=== PATIENT | male | born 1935 | race Caucasian/White ===

== ENCOUNTER 2018-11-21 04:52 | Inpatient (IN) ==
--- NOTE | 2018-11-21 06:02 | PROVIDER DOCUMENTATION ---
HPI-Respiratory General - General Chief Complaint: Shortness of Breath Stated Complaint: sob Time Seen by Provider: 11/21/18 05:52 Source: patient, family Allergies/Adverse Reactions: Patient Allergies Allergy/AdvReac Type Severity Reaction Status Date / Time clopidogrel [From Plavix] AdvReac Unknown Verified 11/21/18 05:22 Home Medications: Home Medication List Medication Instructions Recorded Confirmed Last Taken Type Metformin E.r. [Glucophage Xr] 500 mg PO BID CC 11/21/18 11/21/18 Unknown History Metoprolol Succinate E.r. [Toprol 50 mg PO DAILY 11/21/18 11/21/18 Unknown History Xl] Pravastatin Sodium 80 mg PO DAILY 11/21/18 11/21/18 Unknown History - History of Present Illness-Resp Nature of Presenting Problem: Pt states shortness of breath for 3 weeks that has been worsening. He has been battling pancreatic cancer. patient quit smoking 20 years ago, never diagnosed of COPD, or CHF. EMS reported oxygen saturation was 70 percent on room air. patient was supposed to start chemotherapy on Wednesday, supposed to have Port in place with Dr Lundberg, Quality of Pain: reports: none Severity in ED: reports: moderate Onset/Duration: reports: other (3 weeks) Timing: reports: still present Context: denies: aspiration/choking Exposure: reports: unknown cause Cough Quality/Degree: reports: dry cough Episode Frequency: no prior episodes Current Respiratory Medication Therapy: Initiated see nurses note Modifying Factors: improves with: exertion Associated Symptoms: reports: shortness of breath, wheezing Similar Symptoms Previously?: No Recently seen or treated by another doctor?: No Review of Systems - Adult - REVIEW OF SYSTEMS - ADULT Constitutional: reports: fatique, other (decreased appetite). denies: fever Ears, Nose, Mouth & Throat: reports: no symptoms reported Cardiovascular: denies: chest pain Respiratory: reports: cough, shortness of breath Gastrointestinal: denies: abdominal pain, diarrhea, nausea Genitourinary: reports: no symptoms reported. denies: dysuria Integumentary: reports: no symptoms reported Neurological: reports: no symptoms reported Psychiatric: reports: no symptoms reported Endocrine: reports: no symptoms reported Hematologic/Lymphatic: reports: no symptoms reported Allergic/Immunologic: reports: no symptoms reported Past History - Adult - PAST MEDICAL HISTORY-ADULT Review of Records: reports: Nursing Assessment Review Physical Exam-General - PHYSICAL EXAM-ADULT Initial Vital Signs Reviewed: Yes - CONSTITUTIONAL General Appearance: alert - EYES Eyes: PERRL/EOMI - HEAD, EARS, NOSE, MOUTH & THROAT HENMT: normocephalic/atraumatic - NECK Neck: non-tender, supple - RESPIRATORY Respiratory: crackles, rales, wheezing - CARDIOVASCULAR Cardiovascular: normal peripheral pulses - GASTROINTESTINAL (ABDOMEN) Abdominal Exam: non tender, soft - LYMPHATIC Lymphatic: no adenopathy - MUSCULOSKELETAL Back Exam: no CVA tenderness, no vertebral tenderness Extremity: normal range of motion, non-tender, normal gait - SKIN Integumentary: normal color, warm/dry - NEUROLOGIC Neurologic: director of gift planning II-XII nml as tested - PSYCHIATRIC Psych/Mental Status: normal mood/affect Progress - PLAN OF CARE/RESULTS Progress/Plan/Lab Results: Vital Signs - 8 hr 11/21/18 05:00 11/21/18 05:01 11/21/18 05:04 Temperature Pulse Rate Respiratory Rate Blood Pressure 141/82 127/88 O2 Sat by Pulse Oximetry 97 97 97 11/21/18 05:10 11/21/18 05:20 11/21/18 05:30 Temperature Pulse Rate Respiratory Rate Blood Pressure O2 Sat by Pulse Oximetry 97 96 96 11/21/18 05:33 11/21/18 05:40 11/21/18 05:50 Temperature Pulse Rate Respiratory Rate Blood Pressure 112/71 O2 Sat by Pulse Oximetry 95 95 96 11/21/18 06:00 11/21/18 06:04 11/21/18 06:10 Temperature Pulse Rate Respiratory Rate Blood Pressure 111/96 O2 Sat by Pulse Oximetry 93 L 92 L 98 11/21/18 06:20 11/21/18 06:30 11/21/18 06:33 Temperature Pulse Rate Respiratory Rate Blood Pressure 111/77 O2 Sat by Pulse Oximetry 95 92 L 89 L 11/21/18 06:40 11/21/18 06:50 11/21/18 07:00 Temperature Pulse Rate Respiratory Rate Blood Pressure O2 Sat by Pulse Oximetry 92 L 92 L 90 L 11/21/18 07:03 11/21/18 07:10 11/21/18 07:20 Temperature Pulse Rate Respiratory Rate Blood Pressure 110/67 O2 Sat by Pulse Oximetry 90 L 92 L 92 L 11/21/18 07:30 11/21/18 07:40 11/21/18 07:43 Temperature 97.3 F L Pulse Rate 92 H Respiratory Rate 17 Blood Pressure 115/72 O2 Sat by Pulse Oximetry 94 L 91 L 93 L 11/21/18 07:44 11/21/18 07:50 11/21/18 08:00 Temperature Pulse Rate 95 H 97 H Respiratory Rate 17 22 Blood Pressure 115/72 O2 Sat by Pulse Oximetry 90 L 91 L 91 L 11/21/18 08:03 11/21/18 08:10 11/21/18 08:20 Temperature Pulse Rate 95 H 92 H 96 H Respiratory Rate 20 15 16 Blood Pressure 93/73 O2 Sat by Pulse Oximetry 90 L 91 L 92 L 11/21/18 08:30 11/21/18 08:33 11/21/18 08:59 Temperature Pulse Rate 90 89 89 Respiratory Rate 15 15 19 Blood Pressure 108/65 O2 Sat by Pulse Oximetry 91 L 90 L 93 L 11/21/18 09:00 11/21/18 09:03 Temperature Pulse Rate 92 H 91 H Respiratory Rate 23 17 Blood Pressure 117/73 O2 Sat by Pulse Oximetry 91 L 93 L Laboratory Results - last 24 hr 11/21/18 11/21/18 11/21/18 06:37 07:02 07:02 WBC 7.12 RBC 4.74 Hgb 15.1 Hct 45.3 MCV 95.6 MCH 31.9 H MCHC 33.3 RDW Std Deviation 14.4 Plt Count 261 MPV 10.0 Immature Gran % (Auto) 0.0 Neut % (Auto) 74.1 Lymph % (Auto) 15.9 L [place] % (Auto) 9.6 H Eos % (Auto) 0.1 Baso % (Auto) 0.3 Immature Gran # (Auto) 0.00 Neut # (Auto) 5.28 Lymph # (Auto) 1.13 L [place] # (Auto) 0.68 H Eos # (Auto) 0.01 Baso # (Auto) 0.02 Specimen Type ARTERIAL Sample Site R RADIAL pH 7.43 pCO2 39 pO2 63 HCO3 26.0 Base Excess 1.6 Oxyhemoglobin 90.8 L ABG O2 Sat (Calculated) 18.4 ABG O2 Saturation 94.4 L ABG Carboxyhemoglobin 2.30 ABG Methemoglobin 1.5 Marcelino Test YES A-a O2 Difference 145.0 Total Hemoglobin 14.4 Lactate 1.70 Liter Flow 4.0 Blood Gas Modality CANNULA FiO2 % 36.0 Sodium 139 Potassium 3.5 Chloride 95 L Carbon Dioxide 29 Anion Gap 15 BUN 20 Creatinine 0.7 Estimated GFR/1.73 m2 > 60 BUN/Creatinine Ratio 29 Glucose 148 H Calculated Osmolality 283 Calcium 9.3 Total Bilirubin 0.48 AST 19 ALT 13 Alkaline Phosphatase 96 Yvj-H-Vaxznfpspmg Pept Total Protein 7.8 Albumin 3.9 Globulin 3.9 Albumin/Globulin Ratio 1.0 Plasma Lactate 11/21/18 11/21/18 07:02 07:02 WBC RBC Hgb Hct MCV MCH MCHC RDW Std Deviation Plt Count MPV Immature Gran % (Auto) Neut % (Auto) Lymph % (Auto) [place] % (Auto) Eos % (Auto) Baso % (Auto) Immature Gran # (Auto) Neut # (Auto) Lymph # (Auto) [place] # (Auto) Eos # (Auto) Baso # (Auto) Specimen Type Sample Site pH pCO2 pO2 HCO3 Base Excess Oxyhemoglobin ABG O2 Sat (Calculated) ABG O2 Saturation ABG Carboxyhemoglobin ABG Methemoglobin Marcelino Test A-a O2 Difference Total Hemoglobin Lactate Liter Flow Blood Gas Modality FiO2 % Sodium Potassium Chloride Carbon Dioxide Anion Gap BUN Creatinine Estimated GFR/1.73 m2 BUN/Creatinine Ratio Glucose Calculated Osmolality Calcium Total Bilirubin AST ALT Alkaline Phosphatase Xho-S-Pjycpjowfjp Pept 562 H Total Protein Albumin Globulin Albumin/Globulin Ratio Plasma Lactate 2.5 H Orders Category Date Time Status Saline Loc NOW Care 11/21/18 06:12 Active CHEST-PORTABLE [RAD] Stat Exams 11/21/18 06:12 Completed CTA [CT ANGIOGRM PULMONARY ARTERIES] [CT] Stat Exams 11/21/18 07:52 Completed ABG [RESP] Routine Lab 11/21/18 06:37 Completed BLOOD CULTURE [BLDCUL] Stat Lab 11/21/18 07:39 Received BNP [PRO B-NATRIURETIC PEPTIDE] Stat Lab 11/21/18 07:02 Completed CBC WITH DIFF [HEME] Stat Lab 11/21/18 07:02 Completed COMPREHENSIVE METABOLIC PANEL [CHEM] Stat Lab 11/21/18 07:02 Completed LACTATE, PLASMA [CHEM] Stat Lab 11/21/18 07:02 Completed CefTRIAXONE [Rocephin] 1 gm Med 11/21/18 06:12 Discontinued 0.9% Sodium Chloride Inj [Ns] 50 ml IV NOW Methylprednisolone Sod Succ [Solu-Medrol] Med 11/21/18 06:12 Discontinued 125 mg IV NOW ONE Pulse Oximetry Stat Oth 11/21/18 06:12 Active Result Diagrams: 11/21/18 07:02 11/21/18 07:02 - XRAY 1 XRAY Study: Chest Impression: Abnormal (FINDINGS: There are bilateral infiltrates with a basilar predominance that are predominantly interstitial most compatible with pulmonary edema. There is suggestion of pulmonary venous congestion. There is trace fissural fluid on the right. The cardiac silhouette is borderline prominent. There are CABG changes. IMPRESSION: Bilateral predominantly interstitial infiltrates suggesting pulmonary edema. Superimposed pneumonia cannot be excluded in the right clinical scenario. Electronically signed by Jesus Julien 11/21/2018 7:11 AM) - CT/MRI 1 CT Study: other (cta) Impression: Abnormal (FINDINGS: There is a moderate-sized right-sided pleural effusion measuring 3.8 cm posteriorly and inferiorly in the midline with a smaller left pleural effusion measuring 2.7 cm. No cardiomegaly. No thoracic aortic aneurysm or dissection. Prominent atherosclerosis. Normal opacification of the pulmonary arteries and their major branches. There is pulmonary edema. Atelectasis is found in both lung bases. Severe emphysema. Mild increased interstitial markings bilaterally. Mildly prominent mediastinal and hilar lymph nodes. There is bronchial wall thickening. IMPRESSION: 1.No pulmonary emboli 2.Pulmonary edema with pleural effusions 3.Severe emphysema 4.Multifocal bilateral infiltrates and atelectasis and bronchitis This exam was performed using automated exposure control, adjustment of mA or kV according to patient size, and/or use of iterative reconstruction technique. Electronically signed by Jericho Chapman 11/21/2018 9:20 AM) - CONSULTS/PCP/HOSPITALIST Notification #1 *Consult/PCP/Hospitalist*: MALORIE Sanchez for Dr. Puente Time Discussed: 09:40 Consult Disposition: Admit - CHANGE OF SHIFT REPORT (ED Provider) 1 Report Given and Care Transferred to:: Dr Byrd Time of Transfer: 08:00 Items Pending: Labs, XRAY Results Departure - Departure Date of Disposition Decision: 11/21/18 Time of Disposition Decision: 09:40 DIAGNOSIS: Pneumonia, Cancer of pancreas Disposition: ADMITTED INPATIENT 09 Certified Medical Emergency: Emergent Condition: Stable Referrals and Follow-Ups: Terry Blair MD [Primary Care Provider] - - Critical Care Note This patient required my direct & personal management of CC.: No Attestation - Physician/ ROLANDO Attestation The physician spent face to face time with patient:: Yes Advanced Practice Provider documentation review:: Supervising physician onsite and consulted in the evaluation and care of this patient. The physician did have a face to face encounter with the patient.
[2018-11-21] MEDS ORDERED: SOLU-MEDROL IV ONE (06:12)
[2018-11-21] MEDS ORDERED: ROCEPHIN 1 GM in NS 50 ML IV ONE (06:12)
[2018-11-21 06:46] LABS: ALLEN TEST YES; BE 1.6 mmoll (-3.0-3.0); BLOOD TYPE ARTERIAL; METHB 1.5 % (0.0-1.5); O2(CT) 18.4 mL/dL (15.0-23.0); O2HB 90.8 % (95.0-99.0); PCO2(98.6) 39 mmHg (35-45); PO2(98.6) 63 mmHg (60-100); SAMPLE BLOOD; SAO2 94.4 % (95.0-100.0); THB 14.4 g/dL (11.5-17.4); pH(98.6) 7.43 (7.35-7.45)
[2018-11-21 06:47] LABS: MODALITY CANNULA
[2018-11-21 07:13] LABS: BASO# 0.02 X1000 (0.0-0.2); BASO% 0.3 % (0.0-0.8); EOS# 0.01 X1000 (0.0-0.7); EOS% 0.1 % (0.0-10.0); HEMATOCRIT 45.3 % (42.0-52.0); HEMOGLOBIN 15.1 g/dL (14.0-18.0); LYMPH# 1.13 X1000 (1.2-3.4); LYMPH% 15.9 % (20.5-51.1); MCH 31.9 PG (27-31); MCHC 33.3 g/dL (33-37); MCV 95.6 FL (81-99); MONO# 0.68 X1000 (0.11-0.59); MONO% 9.6 % (1.7-9.3); NEUT# 5.28 X1000 (1.4-6.5); NEUT% 74.1 % (42.2-75.2); PLT 261 X1000 (130-400); RBC 4.74 XMIL (4.7-6.1); RDW 14.4 % (11.5-14.5); WBC 7.12 X1000 (4.8-10.8)
--- NOTE | 2018-11-21 07:13 | Diag Imaging Result Doc PS360 ---
EXAM: CHEST-PORTABLE INDICATION: cough TECHNIQUE: One view COMPARISON: None. FINDINGS: There are bilateral infiltrates with a basilar predominance that are predominantly interstitial most compatible with pulmonary edema. There is suggestion of pulmonary venous congestion. There is trace fissural fluid on the right. The cardiac silhouette is borderline prominent. There are CABG changes. IMPRESSION: Bilateral predominantly interstitial infiltrates suggesting pulmonary edema. Superimposed pneumonia cannot be excluded in the right clinical scenario. Electronically signed by Jesus Julien 11/21/2018 7:11 AM
[2018-11-21 07:42] LABS: AGAP 15; ALBUMIN 3.9 g/dL (3.5-5.0); ALKALINE PHOSPHATASE 96 U/L (32-122); BUN 20 mg/dL (8-22); CALCIUM 9.3 mg/dL (8.8-10.2); CHLORIDE 95 mmol/L (98-107); COSMO 283; CREATININE 0.7 mg/dL (0.7-1.2); ESTIMATED GFR > 60; GLUCOSE 148 mg/dL (70-104); GOT 19 U/L (10-34); GPT 13 U/L (10-44); POTASSIUM 3.5 mmol/L (3.5-5.1); SODIUM 139 mmol/L (136-145); TCO2 29 mmol/L (25-35); TOTAL BILIRUBIN 0.48 mg/dL (0.20-1.00); TOTAL PROTEIN 7.8 g/dL (6.3-8.3)
--- NOTE | 2018-11-21 08:26 | ED EKG INTERP ---
This chart was entered by Joe Goldstein Scribe, acting as scribe for Martha Byrd MD. EKG Interpretation - EKG Time of EKG reading by physician:: 08:06 EKG Read and Signed by:: Martha Byrd EKG Interpretation (*Must complete 3 of following elements*): Abnormal (inferior infarct age undetermined) Rate: 92 Rhythm: sinus [place]: normal QRS: PVC's (occasional) Attestation - Physician/ ROLANDO Attestation The physician spent face to face time with patient:: Yes Advanced Practice Provider documentation review:: Supervising physician onsite and consulted in the evaluation and care of this patient. The physician did have a face to face encounter with the patient. This chart was documented by the indicated scribe, (Joe Goldstein Scribe) and accurately reflects the services I performed and decisions made by me, Martha Byrd MD, as attested by the provider's signature.
--- NOTE | 2018-11-21 09:22 | Diag Imaging Result Doc PS360 ---
EXAM: CT ANGIOGRM PULMONARY ARTERIES HISTORY: rule out PE TECHNIQUE: CT chest with intravenous contrast. Pulmonary arterial protocol with MIP images. COMPARISON: None. FINDINGS: There is a moderate-sized right-sided pleural effusion measuring 3.8 cm posteriorly and inferiorly in the midline with a smaller left pleural effusion measuring 2.7 cm. No cardiomegaly. No thoracic aortic aneurysm or dissection. Prominent atherosclerosis. Normal opacification of the pulmonary arteries and their major branches. There is pulmonary edema. Atelectasis is found in both lung bases. Severe emphysema. Mild increased interstitial markings bilaterally. Mildly prominent mediastinal and hilar lymph nodes. There is bronchial wall thickening. IMPRESSION: 1.No pulmonary emboli 2.Pulmonary edema with pleural effusions 3.Severe emphysema 4.Multifocal bilateral infiltrates and atelectasis and bronchitis This exam was performed using automated exposure control, adjustment of mA or kV according to patient size, and/or use of iterative reconstruction technique. Electronically signed by Jericho Chapman 11/21/2018 9:20 AM
[2018-11-21] MEDS ORDERED: ZOFRAN IV PRN (10:17)
[2018-11-21] MEDS ORDERED: TYLENOL PO PRN (10:20)
[2018-11-21] MEDS ORDERED: DUONEB (A & A) INH PRN (10:21)
[2018-11-21] MEDS ORDERED: VANCOMYCIN IV PER PHARMACY MISC SCH (10:30)
--- NOTE | 2018-11-21 10:49 | HISTORY AND PHYSICAL ---
HISTORY OF PRESENT ILLNESS: This is an 83-year-old followed by Dr. Bah. He a month ago started feeling like he had poor energy, weak, and they diagnosed pancreatic cancer, looks like it is metastatic. He did go down. He has taken, I think, 4 separate trips to [place] and they have told him that he was inoperable, and so he is seeing Dr. Blair. They want to put a port in and start chemotherapy, but he has started having more trouble with breathing and feeling worse and he came in to the emergency room. It is questionable whether he has postobstructive pneumonia, multilobar versus this is metastatic cancer. We will treat him empirically with some antibiotic and get him ready for his port placement. PAST MEDICAL HISTORY: 1. Coronary artery disease status post CABG. 2. Hypercholesterolemia. 3. Hypertension. 4. He has diabetes mellitus type 2. ALLERGIES: He no known drug allergies other than Plavix which he said he had diminished his appetite. FAMILY HISTORY: He does not report any significant history other than hypertension. SOCIAL HISTORY: Negative for alcohol or tobacco. No illicit drugs. Very attentive family. 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 REVIEW OF SYSTEMS: General: No weight gain or loss that he is aware of. HEENT: No change in hearing or visual acuity. Respiratory: No increased work of breathing or dyspnea. Cardiovascular: No chest pain or tachy palpitation. Gastrointestinal and Genitourinary: No gross hematuria or dysuria. Musculoskeletal/Neurologic: No significant complaints. Endocrinologic/Hemologic: No significant history. PHYSICAL EXAMINATION: GENERAL: Well developed, well nourished white male, awake and alert, oriented x3, pleasant. VITAL SIGNS: Temperature 97.3 degrees, pulse 95, respirations 17, blood pressure 115/72. HEENT: Pupils are equal and round. LUNGS: Clear in all lung freeman. CARDIOVASCULAR: Regular rhythm and rate without murmur or S3. ABDOMEN: Soft. SKIN: Warm and dry. LABORATORY DATA: White count 7120, hematocrit 45, platelet count 261,000. Sodium 139, potassium 3.5, chloride 95, BUN 20, creatinine 0.7, alkaline phosphatase 96. ProBNP was 562. Blood gases: pH is 7.43, pCO2 39, PO2 was 63, O2 saturation was 94%. He is on 36% FiO2. Chest x-ray: Bilateral predominantly interstitial infiltrates suggesting pulmonary edema, superimposed pneumonia could not be excluded. CT pulmonary angiogram showed no pulmonary emboli, pulmonary edema with pleural effusion, severe emphysema, multifactorial bilateral infiltrates, atelectasis, and bronchitis. ASSESSMENT AND PLAN: 1. Pancreatic cancer metastatic stage IV. Could not rule out postobstructive pneumonia. We are going to treat him. I think we will treat with Zosyn and vancomycin combination. Give him supplementary O2 and ask Dr. Blair to help follow along. Also get Pulmonary involved. 2. Pancreatic cancer, metastatic. He needs a port placement. They are contemplating systemic therapy with Dr. Blair. We will consult Dr. Blair, and we will give him a little bit of fluids. 3. Nutrition looks okay. Encourage p.o. intake. We will put him on DuoNeb q.4 hours while awake. We will put him on Advair 250/50 one puff twice a day. Will put him on normal saline run at 85 mL an hour. We will check his thyroid, T4, TSH, B12 and folate. I guess we ought to check cardiac enzymes as well in the morning, troponin, CK. We will put him on guaifenesin ER 1200 mg twice a day, and we will consult Dr. Chase Lundberg about port placement, when it would be optimal. cc: Marcelino Hoyos MD
[2018-11-21 11:25] LABS: FREE T4 1.29 ng/dL (0.93-1.70)
[2018-11-21] MEDS: ZOSYN 3.375 GM in NS 50 ML IV SCH ×3 (11:30→21:35)
[2018-11-21] MEDS: NS 1,000 ML IV SCH (11:30)
[2018-11-21] MEDS: HUMALOG SUBQ SCH ×3 (11:40→23:45)
--- NOTE | 2018-11-21 12:21 | EKG Report ---
Test Performed on : 11/21/2018 08:06:54 AM Test Reason : SOB Blood Pressure : / mmHG Vent. Rate : 092 BPM Atrial Rate : 092 BPM P-R Int : 196 ms QRS Dur : 112 ms QT Int : 324 ms P-R-T Axes : 024 016 -40 degrees QTc Int : 400 ms Sinus rhythm. with occasional premature ventricular complexes. Inferior infarct , age undetermined Abnormal ECG No previous ECGs available Unconfirmed Result
[2018-11-21] MEDS ORDERED: VANCOMYCIN 2,300 MG in NS 500 ML IV ONE (13:00)
[2018-11-21] MEDS: DUONEB (A & A) INH SCH ×4 (14:14→23:52)
[2018-11-21] MEDS: SOLU-MEDROL IV SCH ×2 (16:09→21:25)
[2018-11-21] MEDS: NORCO-10 PO PRN ×2 (17:21→21:34)
[2018-11-21] MEDS: ADVAIR 250/50 DISKUS INH SCH (20:05)
[2018-11-22] MEDS: DUONEB (A & A) INH SCH ×6 (03:52→23:22)
[2018-11-22] MEDS: NS 1,000 ML IV SCH (06:08)
[2018-11-22] MEDS: PRILOSEC PO SCH (06:09)
[2018-11-22] MEDS: SOLU-MEDROL IV SCH ×2 (06:09→12:22)
[2018-11-22] MEDS: ZOSYN 3.375 GM in NS 50 ML IV SCH ×3 (06:09→18:35)
[2018-11-22 06:54] LABS: HEMATOCRIT 38.8 % (42.0-52.0); HEMOGLOBIN 12.8 g/dL (14.0-18.0); MCH 32.1 PG (27-31); MCV 97.2 FL (81-99); MPV 10.1 FL (7.4-10.4); RBC 3.99 XMIL (4.7-6.1); RDW 14.5 % (11.5-14.5); WBC 7.07 X1000 (4.8-10.8)
[2018-11-22] MEDS: HUMALOG SUBQ SCH ×4 (06:55→20:50)
[2018-11-22 07:25] LABS: AGAP 10; ALB/GLOB RATIO 1.1; ALBUMIN 3.2 g/dL (3.5-5.0); ALKALINE PHOSPHATASE 84 U/L (32-122); BUN 16 mg/dL (8-22); CALCIUM 8.7 mg/dL (8.8-10.2); CHLORIDE 96 mmol/L (98-107); COSMO 272; CREATININE 0.5 mg/dL (0.7-1.2); ESTIMATED GFR > 60; GLUCOSE 173 mg/dL (70-104); GOT 28 U/L (10-34); GPT 22 U/L (10-44); POTASSIUM 4.1 mmol/L (3.5-5.1); SODIUM 133 mmol/L (136-145); TCO2 27 mmol/L (25-35); TOTAL PROTEIN 6.1 g/dL (6.3-8.3)
[2018-11-22] MEDS: ADVAIR 250/50 DISKUS INH SCH ×2 (07:32→20:20)
--- NOTE | 2018-11-22 07:37 | HEMO/ONC CONSULTATION ---
DATE: 11/21/2018 CHIEF COMPLAINT: We were consulted for further management of patient's metastatic pancreatic cancer. HISTORY OF PRESENT ILLNESS: Mr. Lares presented to the emergency department today complaining of 3 weeks of shortness of breath has been getting worse. Patient quit smoking approximately 20 years ago. Patient brought to ER by EMS oxygen saturation reported at 70% on room air. X-ray the chest while in emergency room showed bilateral interstitial infiltrates suggesting pulmonary edema superimposed pneumonia cannot be excluded, and the patient at that time was admitted for further evaluation and management, to be placed on antibiotics. Mr. Lares is a know to our clinic where he has been following up for his pancreatic body adenocarcinoma. Patient had a CT scan showed multiloculated cystic lesion head and neck, 2nd mass in the distal body the pancreas. Endoscopic ultrasound with biopsy showed pancreatic body mass and pancreatic head was done on 11/04/2018. PET CT revealed hypermetabolic pancreatic mass in the distal body. CT of the chest showed lung nodule that was thought to be benign or granulomatous. Patient was not considered a candidate for surgery due to high risk by [facility]. The plan was to get patient a Port-A-Cath placed this week and start him on Gemzar and Abraxane with 3 to 4 cycles of chemotherapy then followed by concurrent chemoradiation. PAST MEDICAL HISTORY: Coronary artery disease status post CABG, hypercholesterolemia, hypertension, diabetes mellitus type 2. PAST SURGICAL HISTORY: CABG. ALLERGIES: No known drug allergies. HOME MEDICATIONS: Aspirin, metoprolol, irbesartan, pravastatin, metformin. FAMILY HISTORY: Hypertension. SOCIAL HISTORY: Denies any tobacco or alcohol or illicit drug use. REVIEW OF SYSTEMS: Negative as mentioned HPI. PHYSICAL EXAM: Vital Signs: Temperature 99.9 degrees, heart rate 98, respiratory 22, blood pressure is 142/80, saturation 97% on nasal cannula. General: Patient is awake lying in bed no acute distress noted. HEENT: Anicteric. Pupils PERRLA. Mucosa noted be dry. Neck: Supple. Trachea midline. No JVD. Lymph nodes, no palpable lymphadenopathy. Cardiovascular: S1, S2. Regular rate and rhythm. Chest: Bilateral breath sounds clear to auscultation. Abdomen: Soft, nontender. Bowel sounds present all 4 quadrants. Skin: Warm, dry, intact. Neurologic: Oriented x3. No focal deficits noted. LABORATORY DATA: White blood cell count 7.12, hemoglobin 15.1, hematocrit 45.3, platelets 261,000. Potassium 3.5, BUN 20, creatinine 0.7, calcium 9.3. Radiology reports, CTA the pulmonary artery shows no pulmonary emboli, pulmonary edema, pleural effusion, severe emphysema, multifocal bilateral infiltrates and atelectasis and bronchitis. ASSESSMENT AND PLAN: 1. Pancreatic body adenocarcinoma: At this time will have to hold off on chemotherapy planned for this week. This time will wait on patient to get stronger. Once he is discharged we can hopefully start his chemotherapy at that time. Will continue to monitor. 2. Pneumonia: Continue antibiotics as ordered primary medical team. 3. Deep vein thrombosis prophylaxis: Continue have patient get out of bed as possible. Continue sequential compression device as needed. 4. Supportive care: Have patient out of bed much possible, have patient continue exercises as instructed. Protein shakes 4 times a day. Plan care discussed Dr. Blair. Dictated by MALORIE Neri for Terry Blair MD Patient seen and examined. As above. Patient admitted shortness of breath. CT scan reveals bilateral infiltrates. He is on broad-spectrum antibiotics. He is treated for pneumonia/COPD exacerbation. He also has a history of CAD and ejection fraction of about 40%. Recently he was diagnosed to have pancreatic adenocarcinoma with a distal body. He was extensively evaluated at [facility] and was considered unresectable due to his age and comorbidities. He was due to initiate chemotherapy this week however was admitted to the hospital with above named issues. Terry Blair M.D. cc: MALORIE Neri MD [facility] INSANEJanie
[2018-11-22] MEDS: NORCO-10 PO PRN (08:16)
--- NOTE | 2018-11-22 11:34 | PROGRESS NOTE ---
DATE: 11/22/2018 SUBJECTIVE: This patient is sitting on the bed. He is not complaining of chest pain. He is breathing better. He has been coughing up phlegm which has been described as a brown/green. He is not wheezing significantly, just mild scattered at the bases so I will decrease the dose of the steroids. For his constipation, I will start this patient on MiraLAX. We discussed resuscitation status and he wants to be Full Code. OBJECTIVE: Vital Signs: Temperature 98.2 degrees, pulse 88, respiratory rate 21, blood pressure 110/62, oxygen saturation 96% on 4.5 L of nasal cannula. HEENT: Head normocephalic. No trauma. His left pupil is larger than the right one. Neck: Supple. No JVD. Central trachea. Chest: Decreased breath sounds globally with prolonged expiratory phase and faint end-expiratory wheezing at the bases. He does have generalized scattered rhonchi bilaterally and crepitus. Abdomen: Soft and nondistended. Positive bowel sounds. Extremities: No edema, no clubbing, no cyanosis. Neurological Examination: The patient is alert and oriented x3. No focal neurological deficits. Laboratory: WBCs 7, hemoglobin 12.8, hematocrit 38.8, platelets 240,000. Sodium 133, potassium 4.1, chloride 96, bicarbonate 27, BUN 16, creatinine 0.5, glucose 173, calcium 8.7, albumin 3.2. ASSESSMENT AND PLAN: 1. Multifocal pneumonia. We will continue with the antibiotics. He is feeling better. His oxygen saturation dropped without oxygen supplementation so we will continue with oxygen. 2. Acute hypoxemic respiratory failure. Continue with oxygen supplementation. Likely related to pneumonia and chronic obstructive pulmonary disease exacerbation. 3. Chronic obstructive pulmonary disease exacerbation. Continue with steroids, breathing treatment, oxygen supplementation, pulmonary toilet. 4. History of pancreatic adenocarcinoma, followed by Dr. Blair as an outpatient. For now, we will monitor. It looks like he has been in [place] multiple times and they have told him that he was inoperable. 5. History of coronary artery disease, status post coronary artery bypass graft. Aware. No chest pain at this moment. 6. Hypercholesterolemia. Continue with the same management. 7. Hypertension. We are going to hold the blood pressure medication. It looks like at home he is on metoprolol and irbesartan but his blood pressure has been stable without medication and sometimes dropped to the 90s so we will monitor for now 8. Type 2 diabetes, stable. Continue with the same treatment, pattern of blood sugar and sliding scale insulin. 9. Mild fluid overload with some pulmonary edema. For now, what I will do is to stop the intravenous fluids. He seems to be hydrated and he is tolerating orals. I will monitor this patient with a new x-ray in the morning. cc: Taco Price MD
[2018-11-22] MEDS: VANCOMYCIN 2,000 MG in NS 500 ML IV SCH (13:56)
[2018-11-22] MEDS: MILK OF MAGNESIA PO PRN (18:35)
[2018-11-22] MEDS: MORPHINE IV PRN (20:52)
[2018-11-22] MEDS ORDERED: PRAVACHOL PO SCH (21:00)
[2018-11-23] MEDS: SOLU-MEDROL IV SCH ×2 (01:45→13:16)
[2018-11-23] MEDS: ZOSYN 3.375 GM in NS 50 ML IV SCH ×3 (01:46→13:00)
[2018-11-23] MEDS: DUONEB (A & A) INH SCH ×6 (03:26→23:40)
--- NOTE | 2018-11-23 06:06 | HEMO/ONC PROGRESS NOTE ---
DATE: 11/22/2018 SUBJECTIVE: Patient's shortness of breath is improving. The patient has complained of increased amounts of pain to the left lower quadrant. The patient continues to have a productive cough. OBJECTIVE: Vital Signs: Temperature 98.0 degrees, respiratory rate 21, blood pressure is 110/62, saturating 96% on nasal cannula. General: Patient is awake, lying in bed, no acute distress noted. HEENT: Anicteric. Pupils PERRLA. Mucous membranes appear to be moist. Cardiovascular: S1, S2. Regular rate and rhythm. Chest: Bilateral breath sounds diminished bilaterally. Abdomen: Soft, nontender. Bowel sounds present in all 4 quadrants. Neurologic: Alert and oriented x3. No focal deficits noted. LABORATORY DATA: White blood cell count 7.07, hemoglobin 12.8, hematocrit 38.8, platelets are 240,000. Potassium 4.1, BUN 16, creatinine 0.5, calcium 8.7. ASSESSMENT AND PLAN: 1. Pancreatic body adenocarcinoma: Once patient is discharged and back to baseline, will discuss starting his treatment at that time. I will also continue to monitor. 2. Pneumonia: Continue antibiotics as ordered per primary medical team. 3. Deep venous thrombosis prophylaxis: Continue to have patient get out of bed as much possible. Continue SCD devices as needed. 4. Supportive care: Continue to have patient get out of bed as much as possible. Have patient continue exercises as instructed. Continue protein shakes 4 times a day. 5. Pain: Patient will change his pain medication to morphine 5 mg IV every 2 hours. 6. Constipation: Continue miralax as ordered. Plan of care discussed with Dr. Blair. Dictated by MALORIE Neri for Terry Blair MD Patient seen and examined. As above. Patient continues to feel better from his respiratory standpoint. Consult surgery for Placement before discharge. Continue current management. Terry Blair M.D. [facility]
[2018-11-23] MEDS: HUMALOG SUBQ SCH ×4 (06:53→21:42)
[2018-11-23] MEDS: PRILOSEC PO SCH (06:53)
[2018-11-23 07:04] LABS: HEMATOCRIT 41.2 % (42.0-52.0); HEMOGLOBIN 13.3 g/dL (14.0-18.0); IMM GRAN# 0.06 X1000 (0.0-0.04); IMM GRAN% 0.5 % (0.0-0.5); LYMPH# 0.47 X1000 (1.2-3.4); LYMPH% 4.2 % (20.5-51.1); MCH 31.4 PG (27-31); MCHC 32.3 g/dL (33-37); MCV 97.4 FL (81-99); MONO# 0.66 X1000 (0.11-0.59); MONO% 5.9 % (1.7-9.3); NEUT# 10.07 X1000 (1.4-6.5); NEUT% 89.4 % (42.2-75.2); PLT 239 X1000 (130-400); RBC 4.23 XMIL (4.7-6.1); RDW 14.9 % (11.5-14.5); WBC 11.26 X1000 (4.8-10.8)
--- NOTE | 2018-11-23 07:37 | Diag Imaging Result Doc PS360 ---
EXAM: CHEST-PORTABLE INDICATION: dyspnea TECHNIQUE: One view COMPARISON: 11/21/2018 FINDINGS: Bilateral infiltrates with a basilar predominance are stable most compatible with pulmonary edema +/- pneumonia. No new consolidation is identified. There is suggestion of small effusions that are stable. Cardiac silhouette is stable. IMPRESSION: Essentially stable chest. Electronically signed by Jesus Julien 11/23/2018 7:35 AM
[2018-11-23 07:52] LABS: AGAP 11; ALB/GLOB RATIO 1.1; ALBUMIN 3.4 g/dL (3.5-5.0); ALKALINE PHOSPHATASE 84 U/L (32-122); BUN 18 mg/dL (8-22); CALCIUM 8.9 mg/dL (8.8-10.2); CHLORIDE 101 mmol/L (98-107); COSMO 287; CREATININE 0.7 mg/dL (0.7-1.2); ESTIMATED GFR > 60; GLUCOSE 163 mg/dL (70-104); GOT 66 U/L (10-34); GPT 60 U/L (10-44); POTASSIUM 4.9 mmol/L (3.5-5.1); SODIUM 141 mmol/L (136-145); TCO2 29 mmol/L (25-35); TOTAL BILIRUBIN 0.48 mg/dL (0.20-1.00); TOTAL PROTEIN 6.4 g/dL (6.3-8.3)
[2018-11-23 07:53] LABS: LYMPHS 2 % (21-51); MONO 2 % (1-9); SEGS 96 % (42-75)
[2018-11-23] MEDS: ADVAIR 250/50 DISKUS INH SCH ×2 (08:12→19:43)
[2018-11-23] MEDS: MORPHINE IV PRN ×2 (08:30→21:41)
--- NOTE | 2018-11-23 10:11 | HEMO/ONC PROGRESS NOTE ---
DATE: 11/23/2018 SUBJECTIVE: The patient is improving. The patient's pain has improved as well. Patient has no new complaints at this time. OBJECTIVE: Vital Signs: Temperature 98.0 degrees, heart rate 85, respiratory rate 20, blood pressure 110/68, satting 94% on nasal cannula. General: Patient is awake, sitting up on the side of the bed. No acute distress noted. HEENT: Anicteric. Pupils PERRLA. Mucous membranes moist. Cardiovascular: S1, S2. Regular rate and rhythm. Chest: Bilateral breath sounds diminished bilaterally. Abdomen: Soft, nontender. Bowel sounds present in all four quadrants. Neurologic: Alert and oriented x3. No focal deficits noted. LABORATORY DATA: White blood cell count 11.26, hemoglobin 13.3 with hematocrit 41.2, platelets are 239. Potassium 4.9, BUN 18, creatinine 0.7. ASSESSMENT AND PLAN: 1. Pancreatic body adenocarcinoma: Surgery has been consulted for port placement. Once patient is discharged and back to baseline, we will discuss starting his treatment in the clinic at that time. Just continue to monitor for now. 2. Pneumonia: Continue antibiotics as ordered by primary medical team. 3. Constipation: Continue MiraLAX as ordered. 4. Deep venous thrombosis prophylaxis: Continue to have the patient get out of bed as much as possible. Continue sequential compression devices as needed. 5. Supportive care: Continue to have the patient get out of bed as much as possible. Continue to exercise as instructed. Continue protein shakes four times a day. Dictated by MALORIE Neri for Terry Blair MD Patient seen and examined. As above. His shortness of breath and wheezing has improved. Chest is clear to auscultation. Continue current management for COPD exacerbation/mild pneumonia. We will probably discharge tomorrow if everything is well and we will see him outpatient next week to initiate chemotherapy. Terry Blair M.D. [facility]
--- NOTE | 2018-11-23 13:47 | ECHO REPORT ---
ORDER DATE: 11/21/2018 INTERPRETING PHYSICIAN: Dr. Tyson Domingo. ECHOCARDIOGRAPHIC MEASUREMENTS: 1. Interventricular septum: 1.2 cm. 2. Left ventricular posterior wall: 1.2 cm. 3. Diastolic diameter: 4.5 cm. 4. Left atrium: 3.2 cm. SUMMARY OF THE 2-DIMENSIONAL IMAGIN. Technically suboptimal study. 2. Aortic valve leaflets were sclerosed, trileaflet. 3. Pulmonic valve was normal. 4. Mitral valve was normal. There is mitral annular calcification. There was a slight anterior motion of the tip of the mitral valve leaflets. There is mild mitral regurgitation. 5. Mild tricuspid regurgitation. Peak velocity across the tricuspid valve was 3 m/sec. 6. Pulmonary artery systolic pressure of 46 mmHg. 7. Peak velocity across the aortic valve less than 2 m/sec. There is no aortic stenosis or regurgitation. 8. Normal left ventricular cavity size. Mild left ventricular hypertrophy. Estimated ejection fraction of 60%. 9. Endocardium not well visualized in all views. 10. There is no pericardial effusion. cc: MD Tahira Najera CRNP
[2018-11-23] MEDS: VANCOMYCIN 2,000 MG in NS 500 ML IV SCH (13:54)
[2018-11-23] MEDS ORDERED: LASIX IV ONE (14:52)
--- NOTE | 2018-11-23 14:52 | GENERAL SURGERY PROGRESS NOTE ---
DATE: 11/23/2018 SUBJECTIVE: This is a patient who is known to me. He is scheduled for a port but was admitted with pneumonia and volume overload. Clinically he improving but he remains on 3-4 L nasal cannula, saturating low 90s. He is sitting up in bed, visiting with family. No acute distress. LABORATORY DATA: I reviewed his labs. White count is elevated at 11, hematocrit is 41. Creatinine is 0.7. ASSESSMENT AND PLAN: An 83-year-old gentleman with pancreatic carcinoma. He is admitted now with pneumonia and pulmonary edema. He does need a port for adjuvant therapy. I worry about doing this in the setting of acute infection. We will plan to schedule this in the near future as an outpatient after he recovers from this current episode. I talked to the patient about this. We will continue to follow along. cc: Agatha Lundberg MD
[2018-11-23] MEDS ORDERED: ROCEPHIN 1 GM in NS 50 ML IV SCH (15:00)
--- NOTE | 2018-11-23 15:20 | PROGRESS NOTE ---
DATE: 11/23/2018 SUBJECTIVE: Patient is feeling much better today. Surgery Department has been consulted to see if they can place a port, but it looks like they will do it in the future because of this patient's pneumonia at this moment. As per the patient, he is feeling much better today. I will continue with IV antibiotics for 1 more night and hopefully tomorrow we will send him home, but I will need to evaluate this patient. Will need oxygen at home. OBJECTIVE: Vital Signs: Temperature 97.8 degrees, pulse 80, respiratory rate 20, blood pressure 122/70, oxygen saturation 97% on 4 L of nasal cannula. HEENT: Head normocephalic, no trauma. PERRLA. Neck: Supple. No JVD. No masses. Central trachea. Chest: Decreased breath sounds globally with prolonged expiratory phase and faint end-expiratory wheezing mostly at the level of the mid and lower part of the lungs. He does have scattered rhonchi bilaterally and crepitus. Abdomen: Soft, nontender, nondistended. No hepatosplenomegaly. Extremities: No edema, no clubbing, no cyanosis. Neurological examination: The patient is alert and oriented x3. No focal deficits. LABORATORY: WBC 11.2, hemoglobin 13.3, hematocrit 41.2, platelets 239. Sodium 141, potassium 4.9, chloride 101, bicarbonate 29. BUN 18, creatinine 0.7, glucose 163, calcium 8.9, albumin 3.4. ASSESSMENT AND PLAN: 1. Multifocal pneumonia. We will continue with intravenous antibiotics. He is feeling much better, I will stop the Zosyn because of his mild elevation of the liver function tests. I will put this patient on ceftriaxone, and I will continue with vancomycin. Kidney function is stable. 2. Acute hypoxemic respiratory failure. Continue with oxygen supplementation likely secondary to pneumonia. I do believe based on his symptoms that this patient may have chronic obstructive pulmonary disease. 3. Possible chronic obstructive pulmonary disease with mild exacerbation, I have decreased the dose of the steroids. Continue breathing treatment, oxygen supplementation, pulmonary toilet and antibiotics. 4. History of pancreatic adenocarcinoma followed by Dr. Blair as an outpatient. It looks like he has been in [place] multiple times, and they have told him that the pancreatic cancer was inoperable. 5. History of coronary artery disease, status post coronary artery bypass graft, aware. 6. Hypercholesterolemia. Continue with same management. I will stop for now the pravastatin due to a mild elevation of the liver function tests. 7. Hypertension, stable. 8. Type 2 diabetes, stable. 9. Mild fluid overload with some pulmonary edema. He seems to be doing better. He is not complaining of severe shortness of breath, just some shortness of breath with mostly exertion. Since the kidney function looks stable, I will give him a low dose of Lasix to see how he does. cc: Taco Price MD
[2018-11-23] MEDS: MILK OF MAGNESIA PO PRN (16:36)
[2018-11-24] MEDS: DUONEB (A & A) INH SCH ×3 (03:30→11:20)
[2018-11-24] MEDS: MORPHINE IV PRN (04:29)
[2018-11-24] MEDS: PRILOSEC PO SCH (06:40)
[2018-11-24 07:16] LABS: HEMATOCRIT 45.2 % (42.0-52.0); HEMOGLOBIN 14.6 g/dL (14.0-18.0); IMM GRAN# 0.02 X1000 (0.0-0.04); IMM GRAN% 0.2 % (0.0-0.5); LYMPH# 1.85 X1000 (1.2-3.4); LYMPH% 14.7 % (20.5-51.1); MCH 31.6 PG (27-31); MCHC 32.3 g/dL (33-37); MCV 97.8 FL (81-99); MONO# 1.53 X1000 (0.11-0.59); MONO% 12.1 % (1.7-9.3); MPV 10.2 FL (7.4-10.4); NEUT# 9.21 X1000 (1.4-6.5); PLT 258 X1000 (130-400); RBC 4.62 XMIL (4.7-6.1); RDW 15.1 % (11.5-14.5); WBC 12.61 X1000 (4.8-10.8)
[2018-11-24 07:23] VITALS: BP 127/79
[2018-11-24 07:34] LABS: AGAP 10; BUN 18 mg/dL (8-22); CALCIUM 8.4 mg/dL (8.8-10.2); CHLORIDE 99 mmol/L (98-107); COSMO 280; CREATININE 0.8 mg/dL (0.7-1.2); ESTIMATED GFR > 60; GLUCOSE 111 mg/dL (70-104); POTASSIUM 3.8 mmol/L (3.5-5.1); SODIUM 139 mmol/L (136-145); TCO2 30 mmol/L (25-35)
[2018-11-24] MEDS: ADVAIR 250/50 DISKUS INH SCH (07:38)
[2018-11-24] MEDS ORDERED: LASIX IV ONE (08:07)
[2018-11-24] MEDS ORDERED: SOLU-MEDROL IV SCH (09:00)
[2018-11-24] MEDS: HUMALOG SUBQ SCH ×2 (10:34→10:40)
--- NOTE | 2018-11-24 12:53 | HEMO/ONC PROGRESS NOTE ---
DATE: 11/24/2018 SUBJECTIVE: Patient says he continues to feel well at this time. The patient states short of breath continues to improve. Patient says he is ready to go home. OBJECTIVE: Vital Signs: Temperature 97.9 degrees, heart rate 83, respiratory rate 14, blood pressure 127/79, saturating 92% on nasal cannula. General: Patient is awake, lying in bed, no acute distress noted. HEENT: Anicteric. Cardiovascular: S1, S2 regular. Chest: Bilateral sounds diminished bilaterally. Abdomen: Soft, nontender. Bowel sounds present in all 4 quadrants. Neurologic: Alert, awake, orient x3. No focal deficits noted. LABORATORY DATA: White count 12.61, hemoglobin 14.6, hematocrit 45.2, platelets are 258,000. Potassium 3.8, BUN 18, creatinine 0.8. ASSESSMENT AND PLAN: 1. Pancreatic body adenocarcinoma: Once patient is discharged and stable, hopefully next week he can get his chemotherapy started at that time. Continue to monitor. 2. Pneumonia: Continue recommendations per medical team. 3. Constipation: The patient finally had a bowel movement. Continue bowel regimen as ordered. 4. Deep venous thrombosis prophylaxis. Continue to have patient get out of bed as soon as possible. Dictated by MALORIE Neri for Terry Blair MD Patient seen and examined. As above. Patient is doing well. Shortness of breath has improved and is back to his baseline. Okay to be discharged from my standpoint. Follow-up in the clinic next week Terry Blair M.D. [facility]
--- NOTE | 2018-11-25 05:22 | DISCHARGE SUMMARY ---
ADMISSION DATE: 11/21/2018 DISCHARGE DATE: 11/24/2018 DIAGNOSES: 1. Multifocal pneumonia, improving. 2. Acute hypoxemic respiratory failure, improved. 3. Chronic obstructive pulmonary disease with mild exacerbation. 4. History of pancreatic adenocarcinoma, followed by Dr. Blair. 5. History of coronary artery disease, status post coronary artery bypass graft. 6. Hypercholesterolemia. 7. Hypertension. 8. Diabetes mellitus type 2. CONSULTS: 1. Dr. Chase Lundberg, general surgery. 2. Dr. Terry Blair. DIAGNOSTICS: 1. Chest x-ray revealed predominantly interstitial infiltrates suggestive of pulmonary edema. Superimposed pneumonia cannot be excluded. 2. Pulmonary arteriogram revealed no pulmonary emboli, pulmonary edema with pleural effusion, severe emphysema and multifocal bilateral infiltrates, and atelectasis and bronchitis. 3. Echocardiogram revealed normal left ventricular cavity size. Mild left ventricular hypertrophy with an estimated ejection fraction of 60%. There is no trace pericardial effusion. 4. Blood cultures revealed no growth after 48 hours. 5. Sputum culture revealed gram-negative nahed. HOSPITAL COURSE: Mr. Cespedes is an 83-year-old gentleman with a pretty recent diagnosis of pancreatic body adenocarcinoma. He is being followed by Dr. Blair. He presented to the emergency room for increasing shortness of breath. He was found to have multifocal pneumonia for which he received antibiotic coverage of vancomycin and Zosyn. Because of elevated LFTs, Zosyn was discontinued and he was received Rocephin and vancomycin. Thankfully, he has improved. He is able to be transitioned over to Augmentin and azithromycin orally on discharge. He was noted to have a mild COPD exacerbation for which he was treated with DuoNebs along with his home medications. Thankfully, this is resolved. His blood sugars stayed in the 130 to 180 range. He was covered with pattern blood glucose and sliding scale insulin. The plan for the patient had originally been that he have a port placed for chemotherapy and started on Gemzar and Abraxane per Dr. Blair. Dr. Chase Lundberg, general surgery, was consulted and he felt that in the setting of infection port should be delayed and plans are for the patient to follow up with him on an outpatient basis once infection has resolved and port will be placed on an outpatient basis. During the hospitalization, his blood pressures between 110 and 140 over the 60s to 70s. He was on no antihypertensive medications at this time. Therefore, He will not be discharged on any antihypertensive medications. He has been instructed to discuss this with his primary care physician at his visit in a week as well as discussing continuing taking Lasix. DISCHARGE EXAMINATION: Vital Signs: Blood pressure is 127/79 with heart rate of 82, respirations are 16, temperature is 97.9 degrees oral with O2 saturations 92 to 94% on 3 L nasal cannula. Cardiovascular: Regular rate and rhythm. S1 and S2 are appreciated. He has no lower extremity edema. Calves are nontender bilateral to palpation with peripheral pulses palpable x4 extremities. Pulmonary: He does have some scattered rhonchi that predominantly clear to cough with some mild expiratory wheezes noted in the lower lungs. He has no increased work of breathing noted. Gastrointestinal: Abdomen is soft, nontender, nondistended with bowel sounds in all 4 quadrants. Neurologic: He is alert and oriented x3. DISCHARGE MEDICATIONS: 1. Pravastatin 80 mg p.o. daily. 2. Metformin 500 mg p.o. b.i.d. 3. Milk of magnesia 30 mL p.o. daily p.r.n. constipation. 4. [place] 10/325 one q.4 hours p.r.n. pain. 5. Advair 50/250 one puff b.i.d. 6. Ventolin inhaler 2 puffs q.6 hours p.r.n. 7. Z-Jesse take as directed. 8. Augmentin 1000 mg tablet 2000 mg p.o. q.12 hours for 1 week. 9. Lasix 20 mg p.o. daily. FOLLOWUP: 1. Dr. Jesus Bah. He needs to call in the morning to schedule an appointment within the next week. At this appointment continuing Lasix as well as antihypertensive medications will need to be addressed by dr Bah. 2. Dr. Terry Blair as scheduled. 3. Dr. Chase Lundberg. Once his infection has cleared, then placement of a port can be discussed and scheduled per Dr. Lundberg's expertise. He has been instructed to call to be seen sooner return to the ER for any syncope, dizziness, chest pain, palpitations, any increasing shortness of breath, cough, temperature greater than 101, any nausea, vomiting, diarrhea, constipation, black or bloody vomitus or stools, hematuria, dysuria, frequency, urgency. He is being discharged home in stable condition with family members. TIME SPENT: This is a greater than 30 minute discharge. Dictated by MALORIE Landin for Taco Price MD cc: AMLORIE Landin MD [facility], MD [facility]
== END 2018-11-24 11:41 | disposition home or self-care (01) | DRG 177 ==
LOC: SUPCPDRO → ED 04:52 → 4N 12:12 → SUATTDRO 12:12 → 4N 13:39
PROVIDERS: ATTEND Internal Medicine
CPT/HCPCS: 71010; 71045; 71275; 80048; 80053; 82550; 82607; 82746; 82805; 82948; 83605; 83880; 84439; 84443; 84484; 85025; 85027; 87040; 87070; 87077; 87186; 87205; 93005; 93306; 94640; 94761; 94799; 96365; 96375; 99285; A9270; J0696; J1815; J1940; J2270; J2543; J2920; J2930; J3370; J7030; J7040; Q9967; XXXXX

== ENCOUNTER 2018-12-01 22:40 | Inpatient (IN) ==
[2018-12-01 23:15] LABS: BASO# 0.02 X1000 (0.0-0.2); BASO% 0.2 % (0.0-0.8); EOS# 0.06 X1000 (0.0-0.7); EOS% 0.5 % (0.0-10.0); HEMATOCRIT 44.3 % (42.0-52.0); HEMOGLOBIN 14.8 g/dL (14.0-18.0); IMM GRAN# 0.03 X1000 (0.0-0.04); IMM GRAN% 0.3 % (0.0-0.5); LYMPH# 1.38 X1000 (1.2-3.4); LYMPH% 12.6 % (20.5-51.1); MCH 32.2 PG (27-31); MCHC 33.4 g/dL (33-37); MCV 96.5 FL (81-99); MONO# 1.57 X1000 (0.11-0.59); MONO% 14.4 % (1.7-9.3); MPV 10.1 FL (7.4-10.4); NEUT# 7.87 X1000 (1.4-6.5); PLT 217 X1000 (130-400); RBC 4.59 XMIL (4.7-6.1); RDW 14.8 % (11.5-14.5); WBC 10.93 X1000 (4.8-10.8)
[2018-12-01 23:25] LABS: INR 0.98; PROTIME 13.5 Seconds (11.0-16.0)
[2018-12-01 23:26] LABS: PTT 27.8 Seconds (22.3-41.8)
[2018-12-01] MEDS ORDERED: NS 1,000 ML IV ONE (23:28)
--- NOTE | 2018-12-01 23:28 | PROVIDER DOCUMENTATION ---
HPI-Respiratory General - General Chief Complaint: Shortness of Breath Stated Complaint: SOB Time Seen by Provider: 12/01/18 23:20 Source: patient Allergies/Adverse Reactions: Patient Allergies Allergy/AdvReac Type Severity Reaction Status Date / Time clopidogrel [From Plavix] AdvReac Unknown Verified 12/01/18 22:46 Home Medications: Home Medication List Medication Instructions Recorded Confirmed Last Taken Type Hydrocodone/Acetaminophen 1 tab PO Q4HR PRN 11/21/18 11/21/18 11/21/18 04:00 History [Hydrocodone-Acetamin 10-325 mg] Metformin E.r. [Glucophage Xr] 500 mg PO BID CC 11/21/18 11/21/18 Unknown History Pravastatin Sodium 80 mg PO DAILY 11/21/18 11/21/18 Unknown History Acetaminophen [Tylenol] 650 mg PO Q6H PRN PRN tab 11/24/18 Unknown Rx Albuterol Sulfate Inhaler 2 puff INH Q6H PRN PRN #1 inhaler 11/24/18 Unknown Rx [Ventolin Hfa] Amoxicillin/K Clavulanate E.r. 2,000 mg PO Q12HR #32 tab 11/24/18 Unknown Rx [Augmentin Xr] Azithromycin [Zithromax Z-Jesse] 250 mg PO DIRECTED #1 pkg 11/24/18 Unknown Rx Fluticasone/Salmet 250/50 INH 1 puff INH RTBID #1 inhaler 11/24/18 Unknown Rx [Advair 250/50 Diskus] Furosemide [Lasix] 20 mg PO DAILY #30 tab 11/24/18 Unknown Rx Magnesium Hydroxide [Milk of 30 ml PO DAILY PRN PRN udc 11/24/18 Unknown Rx Magnesia] - History of Present Illness-Resp Nature of Presenting Problem: 83 YOM PRESENTS WITH SOB, HE REPORTS HE WAS JUST RELEASED FROM HOSPITAL FOR BILATERAL PNA. HE REPORTS SYMPTOMS HAD IMPROVED UNTIL HE BECAME SOB TONIGHT WITH LOW O2 SATS AT HOME. HE DENIES CP, FEVER, CHILLS, N/V/D Quality of Pain: reports: none Onset/Duration: reports: just prior to arrival Timing: reports: improving Cough Quality/Degree: reports: mild Episode Frequency: no prior episodes Current Respiratory Medication Therapy: Initiated albuterol/atrovent inhale Modifying Factors: improves with: nothing Associated Symptoms: reports: cough, shortness of breath Similar Symptoms Previously?: No Recently seen or treated by another doctor?: No Review of Systems - Adult - REVIEW OF SYSTEMS - ADULT Constitutional: reports: no symptoms reported. denies: see HPI, chills, fever, fatique, night sweats, weight gain, weight loss, other Eyes: reports: no symptoms reported. denies: see HPI, discharge, dry eyes, decreased vision, blurred vision, double vision, eye pain, redness, other Ears, Nose, Mouth & Throat: reports: no symptoms reported. denies: see HPI, ear discharge, ear pain, hearing loss, tinnitus, epistaxis, sinus problem, nose pain, loose teeth, mouth/dental pain, mouth swelling, hoarseness, throat pain, throat swelling, other Cardiovascular: reports: no symptoms reported. denies: see HPI, chest pain, edema, heart murmur, irregular heart rate, orthopnea, palpitations, poor circulation, PND, syncope, other Respiratory: reports: cough, shortness of breath, wheezing. denies: no symptoms reported, see HPI, chronic cough, dyspnea on exertion, excessive sputum production, hemoptysis, pleurisy, other Gastrointestinal: reports: no symptoms reported. denies: see HPI, abdominal pain, hematemesis, constipation, diarrhea, difficulty swallowing, frequent heartburn, nausea, poor appetite, rectal bleeding, vomiting, other Genitourinary: reports: no symptoms reported. denies: see HPI, dysuria, discharge, frequency, flank pain, frequent UTI's, hematuria, hesitency, incontinence, urinary retention, urgency, other Musculoskeletal: reports: no symptoms reported. denies: see HPI, bone pain, back pain, frequent leg cramps, joint pain, joint swelling, muscle aches, muscle weakness, neck pain, other Integumentary: reports: no symptoms reported. denies: see HPI, hives, hair loss, itching, mole changes, nail changes, rash, skin sores/ulcer, skin thickening, other Neurological: reports: no symptoms reported. denies: see HPI, ataxia, dizziness/vertigo, headache/migraines, loss of balance, numbness, paresthesia, seizure, slurred speech, syncope, tremors, other Psychiatric: reports: no symptoms reported. denies: see HPI, anxiety, anti- depressant use, alcohol/drug dependence, depression, emotional problems, insomnia, panic attacks, suicidal thoughts, other Endocrine: reports: no symptoms reported. denies: see HPI, change in skin pigment, excessive sweating, goiter, cold intolerance, heat intolerance, inc reased hunger, increased thirst, polyuria, other Hematologic/Lymphatic: reports: no symptoms reported. denies: see HPI, blood clots, easy bruising, low blood count, lymphedema, prolonged bleeding, swollen lymph nodes, transfusions, other Allergic/Immunologic: reports: no symptoms reported. denies: see HPI, allergic reactions, allergic rhinitis, asthma, eczema, food allergy, frequent infections, hay fever, hives, positive PPD, urticaria, other Past History - Adult - PAST MEDICAL HISTORY-ADULT Review of Records: reports: Nursing Assessment Review, Social history reviewed & non-contributory. Physical Exam-General - PHYSICAL EXAM-ADULT Initial Vital Signs Reviewed: Yes - CONSTITUTIONAL General Appearance: appears well, alert, no apparent distress - EYES Eyes: PERRL/EOMI - HEAD, EARS, NOSE, MOUTH & THROAT HENMT: normocephalic/atraumatic, moist mucous membranes, normal ENT inspection - NECK Neck: non-tender, full range of motion, supple - RESPIRATORY Respiratory: chest non-tender, no pleuratic chest pain, no accessory muscle use, wheezing - CARDIOVASCULAR Cardiovascular: normal peripheral pulses, regular rate, rhythm, no edema, no gallop, no JVD, no murmur - GASTROINTESTINAL (ABDOMEN) Abdominal Exam: normal bowel sounds, non tender, soft - LYMPHATIC Lymphatic: no adenopathy - MUSCULOSKELETAL Back Exam: normal inspection Extremity: normal range of motion - SKIN Integumentary: normal color, normal turgor, warm/dry - NEUROLOGIC Neurologic: grossly normal - PSYCHIATRIC Psych/Mental Status: normal mood/affect, oriented x 3 - HEART Score HEART Score: History: Slightly Suspicious HEART Score: ECG: Normal HEART Score: Age: > or = 65 Years HEART Score: Risk Factors for Atherosclerotic Disease: > or = 3 Risk Factors or History of Atherosclerotic Disease HEART Score: Troponin: < or = Normal Limit Total HEART Score:: 4 Progress - PLAN OF CARE/RESULTS Progress/Plan/Lab Results: Vital Signs - 8 hr 12/01/18 22:43 12/01/18 23:47 12/02/18 00:34 Temperature 97.8 F 98.2 F Pulse Rate 105 H 98 H 87 Respiratory Rate 23 27 H 16 Blood Pressure 140/89 132/74 O2 Sat by Pulse Oximetry 89 L 93 L 94 L Laboratory Results - last 24 hr 12/01/18 12/01/18 12/01/18 22:55 22:55 22:55 WBC 10.93 H RBC 4.59 L Hgb 14.8 Hct 44.3 MCV 96.5 MCH 32.2 H MCHC 33.4 RDW Std Deviation 14.8 H Plt Count 217 MPV 10.1 Immature Gran % (Auto) 0.3 Neut % (Auto) 72.0 Lymph % (Auto) 12.6 L [place] % (Auto) 14.4 H Eos % (Auto) 0.5 Baso % (Auto) 0.2 Immature Gran # (Auto) 0.03 Neut # (Auto) 7.87 H Lymph # (Auto) 1.38 [place] # (Auto) 1.57 H Eos # (Auto) 0.06 Baso # (Auto) 0.02 PT INR PTT (Actin FS) Sodium 138 Potassium 4.1 Chloride 92 L Carbon Dioxide 33 Anion Gap 13 BUN 22 Creatinine 0.6 L Estimated GFR/1.73 m2 > 60 BUN/Creatinine Ratio 37 Glucose 137 H Calculated Osmolality 281 Calcium 9.2 Total Bilirubin 0.60 AST 27 ALT 38 Alkaline Phosphatase 122 Creatine Kinase 32 Troponin T Total Protein 6.4 Albumin 3.6 Globulin 3.0 Albumin/Globulin Ratio 1.0 Plasma Lactate 3.0 H Urine Source Urine Color Urine Clarity Urine pH Ur Specific [place] Urine Protein Urine Ketones Urine Blood Urine Nitrite Urine Bilirubin Urine Urobilinogen Urine Microscopic RBC Urine WBC Urine Microscopic WBC Ur Epithelial Cells Urine Bacteria Urine Glucose 12/01/18 12/01/18 12/02/18 22:55 22:55 01:07 WBC RBC Hgb Hct MCV MCH MCHC RDW Std Deviation Plt Count MPV Immature Gran % (Auto) Neut % (Auto) Lymph % (Auto) [place] % (Auto) Eos % (Auto) Baso % (Auto) Immature Gran # (Auto) Neut # (Auto) Lymph # (Auto) [place] # (Auto) Eos # (Auto) Baso # (Auto) PT 13.5 INR 0.98 PTT (Actin FS) 27.8 Sodium Potassium Chloride Carbon Dioxide Anion Gap BUN Creatinine Estimated GFR/1.73 m2 BUN/Creatinine Ratio Glucose Calculated Osmolality Calcium Total Bilirubin AST ALT Alkaline Phosphatase Creatine Kinase Troponin T < 0.010 Total Protein Albumin Globulin Albumin/Globulin Ratio Plasma Lactate Urine Source CATH Urine Color YELLOW Urine Clarity CLEAR Urine pH 5.0 Ur Specific [place] 1.015 Urine Protein NEGATIVE Urine Ketones TRACE Urine Blood NEGATIVE Urine Nitrite NEGATIVE Urine Bilirubin NEGATIVE Urine Urobilinogen NORMAL Urine Microscopic RBC <10 Urine WBC TRACE A Urine Microscopic WBC <10 Ur Epithelial Cells <10 Urine Bacteria NEGATIVE Urine Glucose NEGATIVE Orders Category Date Time Status Admit - [facility] Routine AdmDCTranf 12/02/18 01:26 Active Cardiac Monitoring DIRECTED Care 12/01/18 22:48 Active IV Insertion ORDERED Care 12/01/18 22:48 Completed Notify MD of + Sepsis Screen NOW Care 12/01/18 22:48 Active Notify Physician As Ordered Care 12/01/18 22:48 Active CHEST-1 VIEW [RAD] Stat Exams 12/01/18 22:48 Taken BLOOD CULTURE [BLDCUL] Stat Lab 12/01/18 23:04 Ordered CBC WITH DIFF [HEME] Stat Lab 12/01/18 22:55 Completed CK PROFILE [SP CHEM] Stat Lab 12/01/18 22:55 Completed COMPREHENSIVE METABOLIC PANEL [CHEM] Stat Lab 12/01/18 22:55 Completed LACTATE, PLASMA [CHEM] Lab 12/02/18 02:19 Received LACTATE, PLASMA [CHEM] Lab 12/02/18 05:00 Ordered LACTATE, PLASMA [CHEM] Q3H Lab 12/01/18 22:55 Completed PROTIME WITH INR [COAG] Stat Lab 12/01/18 22:55 Completed PTT [COAG] Stat Lab 12/01/18 22:55 Completed TROPONIN T Stat Lab 12/01/18 22:[address] W/POSS RFLX CULT [URINALYSIS] Stat Lab 12/02/18 01:07 Completed URINE CULTURE [RM] Routine Lab 12/02/18 01:41 Ordered 0.9% Sodium Chloride Inj [Ns] 1,000 ml Med 12/01/18 23:28 Discontinued IV 999 mls/hr Albuterol 2.5MG/Ipratrop 0.5MG [Duoneb (A & A)] Med 12/01/18 23:36 Discontinued 3 ml INH NOW ONE Levofloxacin 500 mg/D5w [Levaquin 500 mg/D5w] Med 12/02/18 00:07 Discontinued 500 mg in 100 ml IV NOW Aerosol Treatments Routine Oth 12/01/18 23:36 Completed Aerosol Treatments Stat Oth 12/01/18 23:36 Completed Oxygen Device Stat Oth 12/01/18 22:48 Completed Oxygen Device Stat Oth 12/02/18 01:31 Completed Transfer/Admit Order [TRANSFER] Routine Transfer 12/02/18 01:27 Ordered Result Diagrams: 12/01/18 22:55 12/01/18 22:55 - CONSULTS/PCP/HOSPITALIST Notification #1 *Consult/PCP/Hospitalist*: Phillip for Dr Copeland Time Discussed: 02:35 Consult Disposition: Admit (agreed to admit) Departure - Departure Date of Disposition Decision: 12/02/18 Time of Disposition Decision: 02:36 DIAGNOSIS: Pneumonia, Sepsis Disposition: ADMITTED INPATIENT 09 Certified Medical Emergency: Emergent Condition: Fair Referrals and Follow-Ups: Jesus Bah MD [Primary Care Provider] - - Critical Care Note This patient required my direct & personal management of CC.: No Attestation - Physician/ ROLANDO Attestation Patient care was provided by Advanced Practice Provider:: No The physician spent face to face time with patient:: Yes Advanced Practice Provider documentation review:: Supervising physician onsite and consulted in the evaluation and care of this patient. The physician did have a face to face encounter with the patient.
[2018-12-01 23:35] LABS: AGAP 13; ALBUMIN 3.6 g/dL (3.5-5.0); ALKALINE PHOSPHATASE 122 U/L (32-122); BUN 22 mg/dL (8-22); CALCIUM 9.2 mg/dL (8.8-10.2); CHLORIDE 92 mmol/L (98-107); CK PROFILE 32 U/L (24-204); COSMO 281; CREATININE 0.6 mg/dL (0.7-1.2); ESTIMATED GFR > 60; GLUCOSE 137 mg/dL (70-104); GOT 27 U/L (10-34); GPT 38 U/L (10-44); POTASSIUM 4.1 mmol/L (3.5-5.1); SODIUM 138 mmol/L (136-145); TCO2 33 mmol/L (25-35); TOTAL PROTEIN 6.4 g/dL (6.3-8.3)
[2018-12-01] MEDS ORDERED: DUONEB (A & A) INH ONE (23:36)
[2018-12-02] MEDS ORDERED: LEVAQUIN 500 MG/D5W 500 MG/100 ML IVPB IV ONE (00:07)
--- NOTE | 2018-12-02 01:29 | SEPSIS: TISSUE PERFUSION ASSMT ---
Sepsis: Tissue Perfusion Assid - Physical Exam Assessment Date: 12/02/18 Time Assessment Initialized: 01:28 Vital Signs: Last Vital Signs Temp 98.2 F 12/02/18 00:34 Pulse 87 12/02/18 00:34 Resp 16 12/02/18 00:34 BP 132/74 12/02/18 00:34 Pulse Ox 94 L 12/02/18 00:34 Height 6 ft 3 in Weight 86.183 kg Lung Sounds:: wheezing Heart Sounds:: Regular Capillary Refill Time: Less Than 2 Seconds Peripheral Pulse Evaluation:: radial (R): 2+, radial (L): 2+, dorsalis-pedis (R): 2+, dorsalis-pedis (L): 2+ Skin Exam:: flushed, turgor good - Impression Impression:: Tissue Perfusion Adequate - Plan Plan:: No Change
[2018-12-02 01:40] LABS: BILIRUBIN URINE NEGATIVE (NEGATIVE); BLOOD URINE NEGATIVE (NEGATIVE); CLARITY CLEAR (CLEAR); COLOR YELLOW; GLUCOSE URINE NEGATIVE (NEGATIVE); KETONE URINE TRACE mg/dL (NEGATIVE); LEUKOCYTES URINE TRACE (NEGATIVE); NITRITE URINE NEGATIVE (NEGATIVE); PROTEIN URINE NEGATIVE (NEGATIVE); SP GRAVITY URINE 1.015; URINE BACTERIA NEGATIVE /HFP; URINE EPITHELIAL CELLS <10 /HPF (<10); URINE RBC <10 /HPF (<10); URINE SOURCE CATH; URINE WBC <10 /HPF (<10); UROBILINOGEN URINE NORMAL
[2018-12-02] MEDS ORDERED: DILAUDID IV PRN (02:41)
[2018-12-02] MEDS: DUONEB (A & A) INH SCH ×6 (02:53→22:37)
[2018-12-02] MEDS ORDERED: TYLENOL PO PRN ×2 (03:08→08:57)
--- NOTE | 2018-12-02 06:17 | Diag Imaging Result Doc PS360 ---
EXAM: CHEST-1 VIEW HISTORY: sepsis/ pna TECHNIQUE: Chest single view COMPARISON: 11/23/2018 FINDINGS: There are increased interstitial markings/infiltrate throughout both lungs. These are most prominent in the lung bases. Overall the markings are fairly similar to the prior exam. There are tiny pleural effusions. No cardiomegaly. Sternal wires are present. IMPRESSION: Stable chest Electronically signed by Jericho Chapman 12/02/2018 6:15 AM
[2018-12-02] MEDS ORDERED: GLUCOPHAGE XR PO SCH (08:57)
[2018-12-02] MEDS ORDERED: VENTOLIN HFA INH PRN ×2 (08:57→15:18)
[2018-12-02] MEDS ORDERED: MILK OF MAGNESIA PO PRN (08:57)
[2018-12-02] MEDS: ADVAIR 250/50 DISKUS INH SCH ×2 (10:02→19:11)
[2018-12-02] MEDS: NORCO-10 PO PRN ×3 (10:52→20:26)
[2018-12-02] MEDS: LASIX PO SCH (10:53)
--- NOTE | 2018-12-02 13:06 | HISTORY AND PHYSICAL ---
PRIMARY CARE PHYSICIAN: Jesus Bah MD. CHIEF COMPLAINT: Shortness of breath after being released from the hospital with a diagnosis of bilateral pneumonia on 11/24/2018 that progressively worsened. HISTORY OF PRESENTING ILLNESS: This is an 83-year-old male who presents to [facility] ER with complaints of worsening shortness of breath. States he was recently released from the hospital with a bilateral pneumonia and, in fact, was discharged on 11/24/2018 after being found with a multifocal pneumonia and acute hypoxic respiratory failure and a mild exacerbation of COPD. When he arrived to the emergency room, he had an O2 saturation of 89% on 3 L via nasal cannula. His laboratory data was fairly unremarkable except he did have a bump in his plasma lactate at 3. His chest x-ray showed increased interstitial markings and infiltrates throughout both lungs that were most prominent in the lung bases, that were essentially the same as compared to his chest x-ray on 11/23/2018. So he is being admitted to the hospital medical unit for further evaluation and treatment. PAST MEDICAL HISTORY: Pancreatic adenocarcinoma, coronary artery disease, hyperlipidemia, hypertension, and diabetes type 2. PAST SURGICAL HISTORY: CABG. FAMILY HISTORY: Hypertension. SOCIAL HISTORY: Currently lives with family. Denies any tobacco, alcohol, or illicit drug use. ALLERGIES: Clopidogrel. HOME MEDICATIONS: He takes Tylenol 650 mg p.o. q.6 hours p.r.n., Ventolin 2 puff inhalation q.6 hours p.r.n., Advair 250/50 Diskus 1 puff inhalation b.i.d., Lasix 20 mg p.o. daily, [place] 10 one p.o. q.4 hours p.r.n., milk of magnesia 30 mL p.o. daily p.r.n., Glucophage XR 500 mg p.o. b.i.d. LABORATORY DATA: Showed a white blood cell count of 10.93, hemoglobin of 14.8, hematocrit 44.3, platelets 217,000. PT of 13.5, INR of 0.98. Sodium of 138, potassium 4.1, chloride 92, CO2 of 33, BUN of 22, creatinine 0.6, glucose 137. Cardiac enzyme was negative. Plasma lactate on arrival showed 3. Second check showed a plasma lactate of 2.7. This a.m., it was back to normal at 1.9. Urinalysis was negative. IMAGING STUDIES: Chest x-ray showed increased interstitial markings and infiltrates throughout both lungs that are most prominent in the lung bases, similar to the prior exam on 11/23/2018. REVIEW OF SYSTEMS: He denied any fever, chills, blurred vision, dizziness, chest pain. He has had a nonproductive cough, shortness of breath. Denied any abdominal pain, constipation, diarrhea, burning or hurting with urination. PHYSICAL EXAMINATION: VITAL SIGNS: On arrival, he had a temperature of 97.8 degrees, pulse 105, respirations 23, blood pressure 140/89, and was saturating 89% on 3 L via nasal cannula. Currently, he is saturating 94% on 4 L via nasal cannula. GENERAL: This is an 83-year-old male who is sitting up in the bed and answers questions appropriately. HEENMT: Normocephalic, atraumatic. Normal ENT inspection. Oropharynx and nares are clear. Eyes: Pupils are equal, round, and reactive to light and accommodation. Extraocular movements are intact. NECK: Normal inspection. Normal range of motion. LUNGS: On arrival, had some wheezing, but this morning on assessment, they are decreased throughout the entire posterior lung freeman. Equal lung expansion. Chest wall movement is noted. O2 via nasal cannula currently in use. HEART: Regular rate and rhythm. No murmurs, rubs, or gallops. ABDOMEN: Soft, nontender, nondistended. Bowel sounds are present x4 quadrants. MUSCULOSKELETAL: He has 5/5 strength x4 extremities. NEUROLOGICAL: The cranial nerves 2 through 12 appear grossly intact. ASSESSMENT: 1. Sepsis. 2. Bilateral pneumonia. 3. Acute respiratory failure. 4. Diabetes type 2. PLAN: He was admitted to the medical unit, placed on diabetic diet. Urine culture, sputum culture, and blood cultures x2 are pending. He is on Levaquin 500 mg IV q.24. Continue his other medications as previously identified. DuoNeb q.4 hours. Recheck a CBC and BMP in the a.m. Further orders after seen by attending. Dictated by MALORIE Mishra for Chad Copeland MD cc: MALORIE Mishra MD John V. Irle, MD
[2018-12-02] MEDS ORDERED: PRILOSEC PO ONE (15:18)
[2018-12-02] MEDS ORDERED: TUMS EXTRA STRENGTH PO PRN (15:18)
--- NOTE | 2018-12-02 15:57 | Diag Imaging Result Doc PS360 ---
EXAM: CT THORAX W/CONTRAST HISTORY: pneumonia TECHNIQUE: CT chest with intravenous contrast. COMPARISON: 11/21/2018 FINDINGS: There is a moderate-sized right-sided pleural effusion measuring 5.5 cm posteriorly and inferiorly in the midline. There is a smaller left pleural effusion measuring 2.1 cm. There appearance is similar to the prior exam. No cardiomegaly. Pulmonary edema remains. No thoracic aortic aneurysm or dissection. Severe atherosclerosis. Mildly prominent mediastinal nodes similar to the prior exam. There is emphysema and bronchiectasis with multifocal infiltrates as well as atelectasis. Bronchial wall thickening persists. IMPRESSION: No interval improvement. This exam was performed using automated exposure control, adjustment of mA or kV according to patient size, and/or use of iterative reconstruction technique. Electronically signed by Jericho Chapman 12/02/2018 3:54 PM
[2018-12-02] MEDS ORDERED: TUMS EXTRA STRENGTH PO ONE (16:00)
[2018-12-02] MEDS: MAXIPIME 2 GM in NS 100 ML IV SCH (17:18)
[2018-12-02] MEDS: MUCOMYST 20% INH SCH (19:11)
--- NOTE | 2018-12-02 20:05 | HISTORY AND PHYSICAL ---
HISTORY OF PRESENT ILLNESS: Patient has no major complaints. Blood pressure is 125/84, heart rate 107, respiratory rate 22, temperature 97.9 degrees, 91% on 4 L. He was discharged on home oxygen previously. Briefly, he is an 73-year-old male. He was discharged for pneumonia. His discharge medications were a Z-Jesse and Augmentin for 1 week, which I think he had completed the Z-Jesse, but he was down to 1 day of Augmentin. His chest x-ray on the showed interstitial infiltrates similar to previous. He had a CT last admission that showed cancer. He is followed by Dr. Blair for pancreatic cancer, but he is not on chemo at this point, and he is not a surgical candidate. Dr. Blair is waiting for this issue to clear before he can institute any treatment but he just cannot get despite oxygen and fairly high dose amount of oxygen he just cannot get his breath. Currently, he is on Levaquin alone. Since this is technically hospital-acquired, I am going to add cefepime and we will follow and try to get a sputum culture if we can. I am going to pursue CT imaging because this is a complicated pneumonia and we will follow. DISPOSITION: Pending his clinical status. Diabetes, we will continue sliding scale and monitor. Work on pulmonary toilet as well. I have to entertain other causes of this hypoxia including certainly PE, although he has pulmonary infiltrates, CHF. We will check a procalcitonin level too to see if there is anything going on there and work aggressively on pulmonary toilet and follow. Discussed with patient he says he does not want to be maintained on any life support, long-term. We will continue to monitor. cc: Chad Copeland MD
[2018-12-02] MEDS: LEVAQUIN 500 MG/D5W 500 MG/100 ML IVPB IV SCH (23:45)
[2018-12-03] MEDS: NORCO-10 PO PRN ×3 (00:41→17:28)
[2018-12-03] MEDS: DUONEB (A & A) INH SCH ×6 (03:23→23:30)
[2018-12-03] MEDS: MAXIPIME 2 GM in NS 100 ML IV SCH ×2 (05:09→22:56)
[2018-12-03] MEDS: PRILOSEC PO SCH ×2 (05:10→06:31)
[2018-12-03] MEDS ORDERED: LOVENOX SUBQ SCH (06:00)
[2018-12-03 07:59] LABS: BASO# 0.02 X1000 (0.0-0.2); BASO% 0.2 % (0.0-0.8); EOS# 0.02 X1000 (0.0-0.7); EOS% 0.2 % (0.0-10.0); HEMATOCRIT 41.2 % (42.0-52.0); HEMOGLOBIN 13.8 g/dL (14.0-18.0); IMM GRAN# 0.03 X1000 (0.0-0.04); IMM GRAN% 0.3 % (0.0-0.5); LYMPH% 10.9 % (20.5-51.1); MCH 32.2 PG (27-31); MCHC 33.5 g/dL (33-37); MONO# 1.47 X1000 (0.11-0.59); MONO% 12.3 % (1.7-9.3); MPV 10.7 FL (7.4-10.4); NEUT# 9.11 X1000 (1.4-6.5); NEUT% 76.1 % (42.2-75.2); PLT 192 X1000 (130-400); RBC 4.29 XMIL (4.7-6.1); RDW 14.7 % (11.5-14.5); WBC 11.95 X1000 (4.8-10.8)
[2018-12-03 08:28] LABS: AGAP 11; BUN 17 mg/dL (8-22); CALCIUM 8.7 mg/dL (8.8-10.2); CHLORIDE 95 mmol/L (98-107); COSMO 274; CREATININE 0.4 mg/dL (0.7-1.2); ESTIMATED GFR > 60; GLUCOSE 116 mg/dL (70-104); SODIUM 136 mmol/L (136-145); TCO2 30 mmol/L (25-35)
[2018-12-03 08:33] LABS: HEMOGLOBIN A1C 6.3 % (4.8-6.0)
[2018-12-03] MEDS: MUCOMYST 20% INH SCH ×2 (08:50→21:00)
[2018-12-03] MEDS: ADVAIR 250/50 DISKUS INH SCH ×2 (08:50→21:00)
[2018-12-03] MEDS: LASIX PO SCH (09:36)
[2018-12-03 15:48] LABS: BE 6.2 mmoll (-3.0-3.0); BLOOD TYPE ARTERIAL; HCO3-(ACT) 29.4 mmoll (20.0-26.0); O2(CT) 18.2 mL/dL (15.0-23.0); PCO2(98.6) 42 mmHg (35-45); SAMPLE BLOOD; SAO2 90.5 % (95.0-100.0); THB 14.9 g/dL (11.5-17.4); pH(98.6) 7.47 (7.35-7.45)
[2018-12-03] MEDS: SOLU-MEDROL IV SCH ×2 (15:53→21:34)
[2018-12-03 15:54] LABS: ALLEN TEST YES; MODALITY CANNULA; PO2(98.6) 49 mmHg (60-100)
[2018-12-03] MEDS: LASIX IV SCH (15:54)
[2018-12-03] MEDS: ZYVOX 600 MG/D5W 600 MG/300 ML IVPB IV SCH (15:56)
--- NOTE | 2018-12-03 16:48 | Diag Imaging Result Doc PS360 ---
EXAM: CT HEAD W/O CONTRAST HISTORY: encephalopathy TECHNIQUE: CT head without contrast COMPARISON: None. FINDINGS: No parenchymal hemorrhage. No epidural or subdural hematoma. No subarachnoid hemorrhage. Chronic microvascular ischemic changes. No mass identified on this noncontrasted exam. No hydrocephalus. No sinus opacification. IMPRESSION: 1.No hemorrhage 2.Chronic microvascular ischemic changes This exam was performed using automated exposure control, adjustment of mA or kV according to patient size, and/or use of iterative reconstruction technique. Electronically signed by Jericho Chapman 12/03/2018 4:45 PM
[2018-12-03] MEDS: HUMULIN R (PARKWAY) SUBQ SCH ×2 (18:08→21:47)
[2018-12-03 20:07] LABS: MAGNESIUM 1.6 mg/dL (1.5-2.7); POTASSIUM 3.5 mmol/L (3.5-5.1)
[2018-12-03] MEDS ORDERED: MAGNESIUM SULFATE 1 GM/D5W 1 GM/100 ML IVPB IV ONE (21:23)
[2018-12-03] MEDS ORDERED: KLOR-CON PO ONE (21:24)
[2018-12-03] MEDS: CARDIZEM PO SCH (21:34)
--- NOTE | 2018-12-03 22:53 | PROGRESS NOTE ---
DATE: 12/03/2018 SUBJECTIVE: Today complained of acute headache and dizziness. He was a bit hypoxic. He has been kind of persistently hypoxic, we really have not gotten his numbers up very much. OBJECTIVE: Vital Signs: Blood pressure is 135/84, heart rate of 108, respiratory rate of 24, temperature 98.1 degrees. Cardiovascular was 108. Cardiovascular: Regular rate and rhythm. Pulmonary: Bilateral breath sounds. Clear to auscultation. Gastrointestinal: Soft, nontender, nondistended. Bowel sounds are positive. He does have wheezing, kind of soft wheezing, but throughout. I did not appreciate that yesterday. LABORATORY DATA: White count 11, hemoglobin and hematocrit 13 and 41, platelets 192,000. Creatinine was okay. PROBLEM LIST: 1. Acute hypoxic respiratory failure. I am going to add steroids today and Lasix. He needs a little bit more tuning up, I think, before he is going to get much better. He is on cefepime, and we have added Zyvox for methicillin-resistant Staphylococcus aureus coverage. He is also on Levaquin. Hopefully, between that group of medications, he will get a little bit better. 2. Pneumonia, multifocal infiltrates. We are on Zyvox now, Levaquin, and cefepime; hopefully, we can get that a little bit better. 3. Pulmonary edema, bilateral pleural effusions. He may need a tap. I will attempt diuresis 1st and see how that goes, but he may need a tap on the right side because he looks like he has got a pretty significant effusion there. I do not know if he has had thoracentesis before, but we will see. He has a pretty decent amount of fluid and he also has bronchiectasis, so we will see how things look tomorrow based on his x-ray. 4. History of pancreatic cancer. He has not been amenable to get treatment, so we will continue to monitor. DISPOSITION: Pending his clinical status. We will continue to follow closely. cc: Chad Copeland MD
[2018-12-04] MEDS: LEVAQUIN 500 MG/D5W 500 MG/100 ML IVPB IV SCH ×2 (00:15→21:24)
[2018-12-04] MEDS: NORCO-10 PO PRN ×4 (03:46→19:51)
[2018-12-04] MEDS: LASIX IV SCH ×2 (03:48→17:03)
[2018-12-04] MEDS: ZYVOX 600 MG/D5W 600 MG/300 ML IVPB IV SCH ×2 (03:48→15:06)
[2018-12-04] MEDS: DUONEB (A & A) INH SCH ×5 (04:20→20:06)
[2018-12-04] MEDS: PRILOSEC PO SCH (06:35)
[2018-12-04] MEDS: SOLU-MEDROL IV SCH ×3 (06:35→21:24)
[2018-12-04] MEDS: CARDIZEM PO SCH ×3 (06:35→21:23)
[2018-12-04] MEDS: HUMULIN R (PARKWAY) SUBQ SCH ×5 (07:19→21:10)
--- NOTE | 2018-12-04 07:31 | Diag Imaging Result Doc PS360 ---
EXAM: CHEST-PORTABLE HISTORY: dyspnea TECHNIQUE: Chest single view COMPARISON: 12/01/2018 FINDINGS: There are infiltrates throughout the mid and lower lungs. These are similar to the prior exam. Small pleural effusions. The heart is not enlarged. Sternal wires are present. IMPRESSION: Stable chest. Electronically signed by Jericho Chapman 12/04/2018 7:29 AM
[2018-12-04 07:43] LABS: HEMATOCRIT 43.2 % (42.0-52.0); HEMOGLOBIN 14.5 g/dL (14.0-18.0); IMM GRAN# 0.01 X1000 (0.0-0.04); IMM GRAN% 0.2 % (0.0-0.5); LYMPH# 0.45 X1000 (1.2-3.4); LYMPH% 7.5 % (20.5-51.1); MCH 31.7 PG (27-31); MCHC 33.6 g/dL (33-37); MCV 94.3 FL (81-99); MONO# 0.22 X1000 (0.11-0.59); MONO% 3.7 % (1.7-9.3); MPV 10.6 FL (7.4-10.4); NEUT# 5.32 X1000 (1.4-6.5); NEUT% 88.6 % (42.2-75.2); PLT 218 X1000 (130-400); RBC 4.58 XMIL (4.7-6.1); RDW 14.7 % (11.5-14.5)
[2018-12-04 08:05] LABS: AGAP 17; BUN 16 mg/dL (8-22); CALCIUM 8.5 mg/dL (8.8-10.2); CHLORIDE 90 mmol/L (98-107); COSMO 274; CREATININE 0.5 mg/dL (0.7-1.2); ESTIMATED GFR > 60; GLUCOSE 183 mg/dL (70-104); POTASSIUM 4.1 mmol/L (3.5-5.1); SODIUM 134 mmol/L (136-145); TCO2 28 mmol/L (25-35)
[2018-12-04 08:23] LABS: BANDS 1 % (0-1); LYMPHS 8 % (21-51); MONO 2 % (1-9); SEGS 89 % (42-75)
[2018-12-04 08:24] LABS: HYPOCHROM OCCASIONAL
[2018-12-04] MEDS: MUCOMYST 20% INH SCH ×2 (08:47→20:06)
[2018-12-04] MEDS: ADVAIR 250/50 DISKUS INH SCH ×2 (08:47→20:05)
[2018-12-04] MEDS: MAXIPIME 2 GM in NS 100 ML IV SCH ×2 (10:32→21:54)
[2018-12-04 14:11] LABS: BE 7.7 mmoll (-3.0-3.0); BLOOD TYPE ARTERIAL; HCO3-(ACT) 30.5 mmoll (20.0-26.0); METHB 1.5 % (0.0-1.5); PCO2(98.6) 42 mmHg (35-45); SAMPLE BLOOD; SAO2 88.8 % (95.0-100.0); THB 15.9 g/dL (11.5-17.4); pH(98.6) 7.49 (7.35-7.45)
[2018-12-04 14:14] LABS: ALLEN TEST YES; MODALITY CANNULA; O2HB 85.3 % (95.0-99.0); PO2(98.6) 48 mmHg (60-100)
--- NOTE | 2018-12-04 14:48 | PROGRESS NOTE ---
DATE: 12/04/2018 SUBJECTIVE: The patient looks better today. He is not having as much difficulty breathing. OBJECTIVE: Blood pressure is 97/58, heart rate 87, respiratory rate 18, temperature 97.8 degrees. He is about 90% on 4 L.Cardiovascular: Regular rate and rhythm. Pulmonary: He has rales at the bases. Wheezing has improved. Gastrointestinal: Soft, nontender, nondistended. Bowel sounds are positive. He still has 1+ pitting edema in his legs bilaterally. LABORATORY DATA: White count is down to 6, hemoglobin 14, hematocrit 43, platelets 218,000. Basic was okay. Sugar 216, creatinine 0.5. ASSESSMENT: An 83-year-old male presenting with recurrent reportedly pneumonia but has had progressive respiratory failure for the last 24 hours, pretty much since admission, but kind of got worse the last 24 hours. He has been recently discharged maybe about a week prior to admission. He has a history of pancreatic cancer, which this may be related to that but not clearly that he has that. PROBLEM LIST: 1. Respiratory failure. Continue breathing treatments, oxygen, all that. He is on broad- spectrum antibiotics. He is getting diuretics. He is getting steroids. He is getting breathing treatments. I think he needs a pulmonary evaluation because he certainly has not improved rapidly. This is his 2nd admission for a similar process, and we will get their opinion. 2. Pneumonia, multifocal infiltrates. He is on Zyvox, Levaquin, and cefepime. We will get ID to optimize his antibiotics. 3. Pulmonary edema with effusions. He still has a right pleural effusion. He may need a thoracentesis. I will go ahead and put that in for tomorrow. It is a holiday. That may not happen, but we will continue to follow. 4. History of pancreatic cancer. We will make arrangements to transfer him to [facility] for ID and Pulmonary consult and follow. cc: Chad Copeland MD
--- NOTE | 2018-12-04 22:05 | EKG Report ---
Test Performed on : 12/04/2018 8:00:54 PM Test Reason : ectopy Blood Pressure : / mmHG Vent. Rate : 095 BPM Atrial Rate : 097 BPM P-R Int : 188 ms QRS Dur : 108 ms QT Int : 394 ms P-R-T Axes : 036 -21 007 degrees QTc Int : 495 ms sinus Inferior infarct , age undetermined Abnormal ECG When compared with ECG of 04-DEC-2018 19:59, (Unconfirmed) Current undetermined rhythm precludes rhythm comparison, needs review Confirmed by Severino Perales MD ([id number]) on 12/16/2018 7:43:53 AM
[2018-12-05] MEDS: NORCO-10 PO PRN ×4 (00:14→18:56)
[2018-12-05] MEDS: DUONEB (A & A) INH SCH ×7 (00:26→22:51)
[2018-12-05] MEDS: CARDIZEM PO SCH ×3 (04:28→20:29)
[2018-12-05] MEDS: ZYVOX 600 MG/D5W 600 MG/300 ML IVPB IV SCH (04:28)
[2018-12-05] MEDS: LASIX IV SCH ×2 (04:28→16:58)
[2018-12-05 05:07] LABS: ALLEN TEST YES; BE 8.2 mmoll (-3.0-3.0); BLOOD TYPE ARTERIAL; HCO3-(ACT) 31.2 mmoll (20.0-26.0); METHB 1.1 % (0.0-1.5); O2HB 92.8 % (95.0-99.0); PCO2(98.6) 47 mmHg (35-45); PO2(98.6) 65 mmHg (60-100); SAMPLE BLOOD; SAO2 95.5 % (95.0-100.0); THB 14.6 g/dL (11.5-17.4); pH(98.6) 7.46 (7.35-7.45)
[2018-12-05 05:09] LABS: MODALITY VENTIMASK
[2018-12-05 05:10] LABS: HEMATOCRIT 43.4 % (42.0-52.0); HEMOGLOBIN 14.8 g/dL (14.0-18.0); IMM GRAN# 0.02 X1000 (0.0-0.04); IMM GRAN% 0.1 % (0.0-0.5); LYMPH# 0.58 X1000 (1.2-3.4); LYMPH% 4.2 % (20.5-51.1); MCHC 34.1 g/dL (33-37); MCV 93.9 FL (81-99); MONO# 0.82 X1000 (0.11-0.59); MONO% 5.9 % (1.7-9.3); MPV 10.5 FL (7.4-10.4); NEUT# 12.45 X1000 (1.4-6.5); NEUT% 89.8 % (42.2-75.2); PLT 255 X1000 (130-400); RBC 4.62 XMIL (4.7-6.1); RDW 14.5 % (11.5-14.5); WBC 13.87 X1000 (4.8-10.8)
[2018-12-05 05:48] LABS: AGAP 13; BUN 26 mg/dL (8-22); CALCIUM 9.1 mg/dL (8.8-10.2); CHLORIDE 92 mmol/L (98-107); COSMO 278; CREATININE 0.7 mg/dL (0.7-1.2); ESTIMATED GFR > 60; GLUCOSE 153 mg/dL (70-104); POTASSIUM 3.9 mmol/L (3.5-5.1); SODIUM 135 mmol/L (136-145); TCO2 30 mmol/L (25-35)
[2018-12-05] MEDS: PRILOSEC PO SCH (06:03)
[2018-12-05] MEDS: SOLU-MEDROL IV SCH ×3 (06:03→21:57)
[2018-12-05] MEDS: HUMULIN R SUBQ SCH ×4 (06:05→20:31)
[2018-12-05 07:11] LABS: LYMPHS 12 % (21-51); MONO 8 % (1-9); SEGS 80 % (42-75)
--- NOTE | 2018-12-05 07:52 | Diag Imaging Result Doc PS360 ---
EXAM: CHEST-PORTABLE HISTORY: dyspnea TECHNIQUE: Portable chest single view COMPARISON: 12/04/2018 FINDINGS: There are infiltrates throughout both lungs. Sternal wires are present. The heart is not enlarged. There are small pleural effusions. The overall appearance is similar to the prior exam. IMPRESSION: No interval improvement. Electronically signed by Jericho Chapman 12/05/2018 7:49 AM
[2018-12-05] MEDS: ADVAIR 250/50 DISKUS INH SCH ×2 (07:54→18:59)
[2018-12-05] MEDS: MUCOMYST 20% INH SCH ×2 (07:55→18:59)
--- NOTE | 2018-12-05 07:55 | INFECTIOUS DISEASE CONSULT REP ---
DATE: 12/05/2018 CONCLUSION: The patient has multifocal pulmonary infiltrates, as well as bilateral pleural effusions. These findings may be secondary to pneumonia, and it is possible that the patient's infiltrates have not improved for 2 to 3 days because sometimes it takes longer for radiographic study to show improvement than just in 2 or 3 days of starting antibiotics. It is also possible that the patient's multifocal infiltrates and prominent mediastinal lymph nodes are secondary to metastatic disease from the patient's pancreatic cancer. The patient has developed oral candidiasis. RECOMMENDATION: I agree with the broad-spectrum treatment with Zyvox, cefepime, and Levaquin. I have made the Zyvox and Levaquin p.o. instead of IV. I also agree with drawing a procalcitonin level, which hopefully will be able to distinguish between the patient's pulmonary infiltrates being due to pneumonia versus malignancy. For the patient's oral candidiasis, I have started him on Mycostatin swish and swallow. PRESENT ILLNESS: The patient tells me that he has been short of breath and coughing for the past 2 weeks. He sometimes produces a brown sputum. He told me that he has lost 50 pounds in the past 4 weeks, and he has also been having abdominal pain. He has been told that he has pancreatic cancer and that surgery is not indicated, and he is going to get chemotherapy for his pancreatic cancer, but his oncologist wants to hold it until the patient's presumed pneumonia clears up. IMAGING AND LABORATORY DATA: The patient's CBC shows a white count of 13,870, hemoglobin 14.8, platelet count 255,000. Blood gases show a pH of 7.46, a PO2 of 65, and a pCO2 of 47. Creatinine 0.7. GFR is greater than 60. Urinalysis showed trace of white cells and no bacteria. Sputum culture grew normal laci and yeast. Blood and urine cultures were negative. CT scan of the chest shows right greater than left pleural effusion, pulmonary edema, prominent mediastinal lymph nodes, bronchiectasis, and multifocal infiltrates. PAST MEDICAL HISTORY/REVIEW OF SYSTEMS: HEENT: The patient can see okay, but he has decreased hearing. He is complaining of a sore tongue also. Respiratory: See present illness. GI: See present illness. Genitourinary: The patient has difficulty passing his urine. He has had a Ventura catheter inserted. Bones/Joints/Muscles: No swollen joints or muscle aches. Endocrine: The patient has diabetes, but not thyroid disease. Neurologic: The patient has not had any seizures. He has not lost any motor or sensory function recently. Integument: No rash. PREVIOUS HOSPITALIZATIONS AND OPERATIONS: The patient has had coronary artery bypass grafting. MEDICAL DISEASES: Positive for diabetes mellitus, pancreatic cancer, hyperlipidemia, atrial fibrillation, and coronary artery disease. INFECTIOUS DISEASE HISTORY: Negative for pneumonia and UTI. FAMILY HISTORY: Positive for diabetes mellitus and hypertension. SOCIAL HISTORY: [place] is . He does not have any pets at home. He stopped smoking cigarettes 20 years ago. He does not drink alcoholic beverages or abuse drugs. ALLERGIES: He has an adverse reaction to Lipitor, which caused the patient to be anorectic. The patient's chart lists allergy to Lipitor and clopidogrel. HOME MEDICATIONS: The patient is on albuterol inhaler, furosemide, hydrocodone, magnesium, and metformin. PHYSICAL EXAMINATION: Vital Signs: Temperature 98.1 degrees, pulse 90, respirations 19, blood pressure 118/53. The patient weighs 181 pounds. General: This is an ill- appearing, elderly male. He is in no acute distress currently. HEENT: The patient has white coating on his tongue. He has decreased hearing. He can see near objects. He is edentulous, and he was wearing dentures when I examined him. Neck: No meningismus. Lungs: Clear to auscultation. Cardiovascular: Heart rate is irregular. Abdomen: Soft and nontender. Neurologic: The patient is alert. He has decreased hearing. He can see near objects. His memory as regarding his medical history appears to be intact. Integument: No rash. . Thank you for the consult. cc: MD Chad Ring MD [facility]
[2018-12-05] MEDS: ZYVOX PO SCH ×2 (10:15→20:29)
[2018-12-05] MEDS: MYCOSTATIN SUSP PO SCH ×4 (10:15→20:29)
[2018-12-05] MEDS: LEVAQUIN PO SCH (10:16)
[2018-12-05] MEDS: MAXIPIME 2 GM in NS 100 ML IV SCH ×2 (10:16→21:57)
--- NOTE | 2018-12-05 12:48 | PROGRESS NOTE ---
DATE: 12/05/2018 SUBJECTIVE: The patient has no major complaints. He is breathing a bit better. He is still on a face mask though. OBJECTIVE: Blood pressure 96/57, heart rate 93, respiratory rate 16, temperature 97.5 degrees. He is 92 to 93 percent on a Venturi mask, which I think is at 50%. Cardiovascular: Regular rate and rhythm. Pulmonary: Rales at the bases. Rhonchi at the bases. GI: Soft, nontender, nondistended. Bowel sounds were positive. Laboratory Data: White count is 13, hemoglobin and hematocrit of 14 and 43, platelets of 255,000. PH 7.46, pCO2 47, PaO2 65. Sodium 135. ProBNP 1287. Chest x-ray today shows no interval improvement in her infiltrates bilaterally. Small pleural effusion, although on the CT, it looked more expansive. ASSESSMENT AND PLAN: 1. Acute hypoxic respiratory failure secondary to volume overload, possibly pneumonia. This is a recurrent admission for this process. I do not think he has completely cleared it. Although it is not entirely clear, this may also not be related to carcinomatosis but we are treating multiple issues. Pulmonary is following and infectious disease is following. 2. Pneumonia with multifocal infiltrates. He is on Zyvox, Levaquin, and cefepime. Dr. Simmons has evaluated the patient. I appreciate his input. 3. Pulmonary edema with bilateral pleural effusions with a significant right pleural effusion. I do think he needs a thoracentesis. The family did not report to me directly but I think to the nursing staff that they want Dr. Thompson to evaluate him before we go send him through with that. Again, certainly process is not without risk and if he does develop a pneumothorax or complication, it may have significant effect on his respiratory failure so we will see what Dr. Thompson says. Dr. Hardy has been consulted but they have requested Dr. Thompson. Apparently, he has a family friend to their family primarily so hopefully, he will evaluate and give us some guidance tomorrow. 4. History of pancreatic cancer. We are aware of that. He has not been able to get any treatment currently. I want to say he sees Dr. Blair but I am not entirely sure about that. We will get his primary oncologist consulted. In the meantime, we will continue antibiotics, breathing treatments, and follow. cc: Chad Copeland MD MTDD
--- NOTE | 2018-12-05 18:38 | CONSULTATION ---
DATE OF CONSULTATION: 12/05/2018 REQUESTING PROVIDER: Daniel Copeland MD REASON FOR CONSULTATION: Respiratory failure. HISTORY OF PRESENT ILLNESS: This is an 83-year-old male with a medical history of chronic hypoxic respiratory failure secondary to COPD, coronary artery disease, hypocholesterolemia, hypertension, diabetes mellitus type 2, and pancreatic adenocarcinoma. He presented to the [facility] on 12/01/2018 with worsening shortness of breath. He had been recently treated for multifocal pneumonia in our facility from 11/22/2018 to 11/24/2018. Initial workup in the ER revealed acute respiratory failure, bilateral pneumonia, and sepsis. He had been admitted to the [facility] ICU for further evaluation and management. During his hospital stay, he has been treated with 3 broad-spectrum antibiotics, but he still requires high flow oxygen. He was transferred to our facility yesterday for Infectious Disease and Pulmonary consult. At the time of my examination, patient is resting in bed comfortably with his and daughter at the bedside. The patient reports sore tongue, sore throat, productive cough with yellow thick sputum or scant blood-streaked sputum at times, difficulty with urination, pedal edema, weight loss, and poor appetite, but he has no bowel habit change, chills, fever, chest pain or palpitation. PAST MEDICAL AND SURGICAL HISTORY: 1. Chronic hypoxic respiratory failure, on continuous home oxygen at 3 liters. 2. Chronic obstructive pulmonary disease. 3. Coronary artery disease, status post coronary artery bypass graft. 4. Hypocholesterolemia. 5. Hypertension. 6. Diabetes mellitus type 2. 7. Pancreatic adenocarcinoma, followed by Dr. Blair. SOCIAL HISTORY: The patient lives at home with his . He has no history of tobacco, alcohol or illicit drug use. FAMILY HISTORY: Positive for hypertension and diabetes. ALLERGIES: Plavix. REVIEW OF SYSTEMS: A 10-point review of systems was conducted, and the pertinent is listed within the HPI, otherwise noncontributory. PHYSICAL EXAMINATION: Vital Signs: Temperature 97.3, blood pressure 92/61, pulse 79, respiratory rate 18, oxygen saturation 92% on Ventimask with FiO2 of 50%. General: Patient is resting comfortably in bed with no acute distress noted. Family at the bedside. Some pink thick sputum noted in the specimen container at the bedside table. HEENT: Atraumatic, trachea midline. Mucosa red and slightly dry. Respiratory: Even and unlabored. Symmetrical excursion. Auscultation revealed diminished breathing sounds bibasilarly with early inspiratory crackles bilaterally and late expiratory wheezing on the right side of the lung. Cardiovascular: Regular rate and rhythm with no murmur noted. Gastrointestinal: Bowel sounds normoactive in all 4 quadrants. Soft, nontender, nondistended. Extremities: Trace pedal edema. No cyanosis. No clubbing. Dorsalis pedis 2+ bilaterally. Neurologic: Alert and oriented x3. Speech fluent. Follows commands. LABORATORY DATA: White blood cells 13.87, hemoglobin 14.8, hematocrit 43.4, platelets 255,000. Sodium 135, potassium 3.9, chloride 92, carbon dioxide 30, BUN 26, creatinine 0.7, glucose 153. ABG, pH 7.46, pCO2 of 47, PO2 of 65, HCO3 of 31.2, base excess 8.2, oxyhemoglobin 92.8. IMAGING DATA: Chest x-ray revealed stable infiltrates throughout both lungs with stable pleural effusions. ASSESSMENT: This is an 83-year-old male with a medical history of chronic hypoxic respiratory failure secondary to chronic obstructive pulmonary disease, coronary artery disease, hypocholesterolemia, hypertension, diabetes mellitus type 2, and pancreatic adenocarcinoma. He has been initially admitted to the [facility] ICU with acute respiratory failure, bilateral pneumonia, and sepsis. He was transferred to our facility yesterday for Infectious Disease and Pulmonary consultation. 1. Acute on chronic hypoxic respiratory failure. 2. Bilateral pneumonia. 3. Pulmonary edema with a moderate-size right pleural effusion and a smaller left pleural effusion. 4. Scant hemoptysis 5. Chronic obstructive pulmonary disease. 6. Pancreatic adenocarcinoma. 7. The patient is Do Not Resuscitate 1. PLAN: 1. Continue supplemental oxygen. 2. Continue antibiotics, steroid, and bronchodilators. 3. Follow up with ABG, CBC, BMP and chest x-ray. 4. Plan for thoracentesis tomorrow. 5. Dr. Simmons is on board. 6. Continue GI and DVT prophylaxis. 7. Further recommendations pending hospital course. Thank you for the courtesy of this consult. Dictated by MALORIE Garcia for Haley Hardy MD cc: MALORIE Garcia MD [facility]
[2018-12-06] MEDS: NORCO-10 PO PRN ×4 (01:22→21:14)
[2018-12-06] MEDS: DUONEB (A & A) INH SCH ×6 (03:36→23:37)
[2018-12-06] MEDS: LASIX IV SCH ×2 (03:53→16:56)
[2018-12-06] MEDS: CARDIZEM PO SCH ×3 (04:00→21:14)
[2018-12-06 05:22] LABS: ALLEN TEST YES; BE 11.1 mmoll (-3.0-3.0); BLOOD TYPE ARTERIAL; HCO3-(ACT) 33.4 mmoll (20.0-26.0); METHB 1.6 % (0.0-1.5); O2(CT) 18.7 mL/dL (15.0-23.0); PO2(98.6) 64 mmHg (60-100); SAMPLE BLOOD; SAO2 95.7 % (95.0-100.0); THB 14.5 g/dL (11.5-17.4); pH(98.6) 7.46 (7.35-7.45)
[2018-12-06 05:23] LABS: MODALITY VENTIMASK; PCO2(98.6) 52 mmHg (35-45)
[2018-12-06 05:45] LABS: HEMATOCRIT 40.7 % (42.0-52.0); HEMOGLOBIN 13.9 g/dL (14.0-18.0); IMM GRAN# 0.02 X1000 (0.0-0.04); IMM GRAN% 0.2 % (0.0-0.5); LYMPH# 0.37 X1000 (1.2-3.4); LYMPH% 3.8 % (20.5-51.1); MCH 32.2 PG (27-31); MCHC 34.2 g/dL (33-37); MCV 94.2 FL (81-99); MONO% 6.1 % (1.7-9.3); MPV 10.6 FL (7.4-10.4); NEUT# 8.81 X1000 (1.4-6.5); NEUT% 89.9 % (42.2-75.2); PLT 242 X1000 (130-400); RBC 4.32 XMIL (4.7-6.1); RDW 14.4 % (11.5-14.5)
[2018-12-06] MEDS: PRILOSEC PO SCH (06:08)
[2018-12-06] MEDS: SOLU-MEDROL IV SCH ×3 (06:08→21:15)
[2018-12-06 06:30] LABS: AGAP 15; BUN 34 mg/dL (8-22); CALCIUM 8.5 mg/dL (8.8-10.2); CHLORIDE 90 mmol/L (98-107); COSMO 285; CREATININE 0.8 mg/dL (0.7-1.2); ESTIMATED GFR > 60; GLUCOSE 165 mg/dL (70-104); POTASSIUM 3.4 mmol/L (3.5-5.1); SODIUM 137 mmol/L (136-145); TCO2 32 mmol/L (25-35)
[2018-12-06] MEDS: HUMULIN R SUBQ SCH ×4 (06:36→21:15)
[2018-12-06 06:50] LABS: BANDS 2 % (0-1); LYMPHS 4 % (21-51); MONO 4 % (1-9); SEGS 88 % (42-75)
--- NOTE | 2018-12-06 07:17 | Diag Imaging Result Doc PS360 ---
EXAM: CHEST-PORTABLE 12/06/2018 HISTORY: dyspnea TECHNIQUE: AP portable at 0550 COMMENT: There are bilateral pleural effusions. There is interstitial and alveolar opacity particularly in the lower lobes. There may be slight improvement in the right upper lobe compared to 12/05/2018, otherwise are has been no significant change. IMPRESSION: Pulmonary edema and pleural effusions plus minus pneumonia. Electronically signed by Jj Cummings 12/06/2018 7:14 AM
[2018-12-06] MEDS: MUCOMYST 20% INH SCH ×2 (07:30→19:13)
[2018-12-06] MEDS: ADVAIR 250/50 DISKUS INH SCH ×2 (07:30→19:13)
--- NOTE | 2018-12-06 08:32 | INFECTIOUS DISEASE PROGRESS NO ---
DATE: 12/06/2018 PRESENT ILLNESS: The patient has multifocal pulmonary infiltrates and pleural effusions bilaterally. This could be due to an infection such as pneumonia, but unfortunately, it also could be due to metastatic pancreatic cancer. The patient also has oral candidiasis. MEDICATIONS: The patient has been on cefepime, Zyvox and Levaquin now for 3 days and yesterday I started the patient on nystatin. PHYSICAL EXAMINATION: Vital Signs: Temperature is 97.9 degrees, pulse 86, respirations 17, blood pressure 106/65. General: This is an ill-appearing elderly male. He is in no acute distress. Head, eyes, ears, nose, and throat: The patient has only a few white patches on his tongue. He has decreased hearing. He can see near objects. Neck: He does not have any pain when he moves his neck. Lungs: Clear to auscultation. Cardiovascular: Heart rate is irregular. Abdomen: Soft and nontender. Neurologic: The patient is awake. He can move his extremities. He has decreased hearing. Integument: No rash noted. LABORATORY AND X-RAY: There is no new x-ray for today at this time. The patient's CBC shows a white count of 9800, hemoglobin 13.9, and platelet count 242,000. The patient's blood gases show a pH of 7.46, a PO2 of 64 and a pCO2 of 52. ASSESSMENT AND PLAN: 1. The patient has bilateral pulmonary infiltrates with effusions. This could be due to an infectious process, or it could be due to metastatic pancreatic cancer. I plan on continuing the antibiotics at this time pending the results of the procalcitonin. Also, it appears that today the patient is going to have a thoracentesis, which also will help us to determine the cause of the patient's infiltrates and pleural effusions. 2. Comorbidities: Unfortunately, he has pancreatic cancer. He also is a diabetic and he has atrial fibrillation as well. cc: Jose Simmons MD
[2018-12-06] MEDS: MYCOSTATIN SUSP PO SCH ×4 (09:40→21:14)
[2018-12-06] MEDS: LEVAQUIN PO SCH (09:40)
[2018-12-06] MEDS: ZYVOX PO SCH ×2 (09:40→21:14)
[2018-12-06] MEDS: MAXIPIME 2 GM in NS 100 ML IV SCH ×2 (09:40→21:14)
--- NOTE | 2018-12-06 10:45 | PROGRESS NOTE ---
DATE: 12/06/2018 SUBJECTIVE: This morning Mr. Cespedes refers to be feeling fairly okay and still needing nasal cannular for adequate oxygenation. He still feels weak and short of breath. He had 4 family members including the at the bedside at the time of the encounter. OBJECTIVE: Vital Signs: Blood pressure 97/69, pulse of 82, respirations 16, and temperature 97.5 degrees. Patient was saturating 95%. General: Mr. Cespedes is an 83-year-old elderly male. He is in bed. He seems to be in mild respiratory distress. HEENT: Mucosa is pink and moist. Anicteric. Acyanotic. Neck: Supple. No JVD. Chest: Air entry is bilaterally reduced. There are some crackles in posterior lung freeman. There is some dullness to percussion to the posterior lung freeman. Cardiovascular: Regular rate and rhythm. There are occasional extrasystolic beats. There is an old sternotomy scar on the anterior chest wall. Abdomen: Soft, nontender. Bowel sounds present. No hepatosplenomegaly. Extremities: No pedal edema. Distal pulses are present. ENCYCLOPEDIA RESEARCH WORKER: Patient is awake, alert, and oriented. There is no focal neurological deficit. LABORATORY DATA: WBC is 9.80, hemoglobin is 13.9, and platelet count of 242,000. Chemistry is also reviewed and unremarkable except for potassium of 3.4. Rest of chemistry is unremarkable. Pro-B slightly elevated to 2317. The patient's pCO2 is 52 and PaO2 is 64. A chest x-ray this morning shows pulmonary edema and pleural effusions plus minus pneumonia. The patient has already been seen by infectious disease. CURRENT MEDICATIONS: All have been reviewed. Antimicrobials include cefepime and Zyvox and p.o. Levaquin. DATA: So far microbiology data, blood cultures, and urine culture have been negative. Sputum is also negative. ASSESSMENT: 1. Acute hypoxemic respiratory failure on presentation. This is presumed to be a combination of pulmonary edema, pleural effusions and possibly underlying pneumonia. The patient is being treated for each one of the possibilities. 2. Multifocal pneumonia. Patient is on cefepime, Zyvox and Levaquin. ID is on board. 3. Pulmonary edema with pleural effusions, likely a combination of cardiac and noncardiac causes. The patient is pending a thoracentesis this morning for a better categorization of this effusion. 4. History of pancreatic adenocarcinoma. The patient follows up with Dr. Blair. He has not started on any adjuvant therapy yet because of pneumonias. So in general, Mr. Cespedes continues to be hypoxemic. He is currently needing nasal cannula. However, he seems to be gradually feeling better. We are pending an ultrasound-guided thoracentesis by IR analysis. Fluid analysis have already been ordered. The patient has also requested Dr. Thompson to see him. cc: Efren Tipton MD [facility]
[2018-12-06 15:46] LABS: FREE T4 1.2 ng/dL (0.93-1.70); TSH 0.85 uIUmL (0.27-4.20)
[2018-12-06 15:54] LABS: VITAMIN D 25 HYDROXY 37.8 NG/DL
--- NOTE | 2018-12-06 18:01 | Diag Imaging Result Doc PS360 ---
LAT. DECUBITUS VIEW-RIGHT, LAT. DECUBITUS VIEW-LEFT - 12/06/2018 5:36 PM INDICATION: pleural effusion TECHNIQUE: COMPARISON: Frontal chest x-ray 5:50 AM FINDINGS: There are small bilateral layering pleural effusions, right greater than left. IMPRESSION: Small bilateral pleural effusions. Electronically signed by Ady Webber 12/06/2018 5:59 PM
--- NOTE | 2018-12-06 22:29 | PULMONOLOGY PROGRESS NOTE ---
DATE: 12/06/2018 SUBJECTIVE: The patient was seen at the request of Dr. Copeland and family. See consultation by Dr. Hardy's nurse practitioner. The patient reports he has lost approximately 50 pounds over the last 2 to 3 months. His weight decreased from 235 to his current weight of 185. His workup by Dr. Bah revealed a pancreatic mass. He was evaluated at [place], and an endoscopic ultrasound and biopsy confirmed pancreatic cancer. Given his age and condition, he was felt not to be a surgical candidate. The patient has had 2 recent admissions to this hospital associated with shortness of breath and pneumonia. CT scan of the thorax was performed 12/02/2018, which reveals relatively diffuse and severe emphysema, small to moderate effusion on the right, with bibasilar infiltrates worrisome for aspiration. The patient denies significant reflux or emesis. He reports his appetite has markedly declined, and his p.o. intake by his description is not adequate to maintain his weight. He has a cough, which is occasionally productive. His dyspnea has marginally improved. His CT scan also reveals a component of bronchiectasis. OBJECTIVE: Vital signs: The patient has been afebrile for the last 24 hours. Blood pressure 96/67, heart rate 91, respiratory rate 17, oxygen saturation 94%. HEENT: Pupils are equal and reactive. Oropharynx is clear. Neck: Supple. Chest: Reveals bibasilar infiltrates. Cardiac exam: Irregular irregular. Normal S1, normal S2. Abdomen: Soft with diminished bowel sounds. Extremities: Are without edema. LABORATORIES: Left and right lateral decubitus x-rays were performed. He has bilateral effusions which are small. Right appears to be slightly greater than the left. IMPRESSION: 1. An 83-year-old with 80 pack-year history for tobacco and significant chronic obstructive pulmonary disease. 2. Acute hypoxemic respiratory failure. 3. Small bilateral effusions. 4. Bibasilar infiltrates consistent with pneumonia. 5. Pancreatic cancer. 6. Greater than 20% loss of body weight over the last few months. 7. Declining performance status. DISCUSSION: An 83-year-old with problems outlined above. He has had marked decline in both strength, body mass, and performance status over the last 2 months. He is unable to eat adequate calories to maintain his weight. He will be a difficult chemotherapy candidate if he cannot clear pneumonia and gain some strength. With his COPD, weight loss, diabetes, and decreased performance status, his prognosis is poor. The patient does have dyspnea, which is likely a combination of problems outlined above. The effusions are small and is not clear that thoracentesis will improve his respiratory status. RECOMMENDATIONS: 1. Continue bronchial hygiene. 2. Check CRP level. I suspect his CRP is elevated even though he is on steroids given his underlying malignancy. 3. Agree with current antibiotic regimen, which should treat both pneumonia and a component of his bronchiectasis. 4. Overall prognosis is guarded to poor. End of life discussions have been held, and he will be allowed to have a natural if he declines. cc: Hay Thompson MD
[2018-12-07] MEDS: NORCO-10 PO PRN ×4 (00:50→19:05)
[2018-12-07] MEDS: DUONEB (A & A) INH SCH ×6 (03:48→23:50)
[2018-12-07] MEDS: CARDIZEM PO SCH ×3 (04:57→21:42)
[2018-12-07] MEDS: LASIX IV SCH ×2 (04:57→17:06)
[2018-12-07] MEDS: SOLU-MEDROL IV SCH ×3 (04:57→13:05)
[2018-12-07 05:01] LABS: ALLEN TEST YES; BLOOD TYPE ARTERIAL; METHB 0.9 % (0.0-1.5); O2HB 95.6 % (95.0-99.0); PO2(98.6) 86 mmHg (60-100); SAMPLE BLOOD; SAO2 98.1 % (95.0-100.0); THB 15.6 g/dL (11.5-17.4); pH(98.6) 7.47 (7.35-7.45)
[2018-12-07 05:03] LABS: MODALITY VENTIMASK; PCO2(98.6) 54 mmHg (35-45)
[2018-12-07] MEDS: HUMULIN R SUBQ SCH ×4 (06:04→21:43)
[2018-12-07 06:35] LABS: PHOSPHORUS 3.2 mg/dL (2.7-4.5)
[2018-12-07 06:37] LABS: AGAP 11; ALB/GLOB RATIO 1.2; ALBUMIN 3.1 g/dL (3.5-5.0); ALKALINE PHOSPHATASE 88 U/L (32-122); BUN 41 mg/dL (8-22); CALCIUM 8.3 mg/dL (8.8-10.2); CHLORIDE 91 mmol/L (98-107); COSMO 287; CREATININE 0.8 mg/dL (0.7-1.2); ESTIMATED GFR > 60; GLUCOSE 183 mg/dL (70-104); GOT 70 U/L (10-34); GPT 76 U/L (10-44); POTASSIUM 3.6 mmol/L (3.5-5.1); SODIUM 136 mmol/L (136-145); TCO2 34 mmol/L (25-35); TOTAL BILIRUBIN 0.66 mg/dL (0.20-1.00); TOTAL PROTEIN 5.7 g/dL (6.3-8.3)
[2018-12-07] MEDS: MUCOMYST 20% INH SCH ×2 (07:27→19:20)
[2018-12-07] MEDS: ADVAIR 250/50 DISKUS INH SCH ×2 (07:27→19:20)
[2018-12-07] MEDS: MAXIPIME 2 GM in NS 100 ML IV SCH ×2 (08:13→21:42)
[2018-12-07] MEDS: PRILOSEC PO SCH (08:14)
[2018-12-07] MEDS: MYCOSTATIN SUSP PO SCH ×4 (08:14→21:43)
[2018-12-07] MEDS: LEVAQUIN PO SCH (08:14)
[2018-12-07] MEDS: ZYVOX PO SCH ×2 (08:14→21:42)
[2018-12-07 08:40] LABS: HEMATOCRIT 41.8 % (42.0-52.0); HEMOGLOBIN 14.1 g/dL (14.0-18.0); IMM GRAN# 0.02 X1000 (0.0-0.04); IMM GRAN% 0.3 % (0.0-0.5); MCH 31.9 PG (27-31); MCHC 33.7 g/dL (33-37); MCV 94.6 FL (81-99); MONO# 0.54 X1000 (0.11-0.59); MONO% 6.8 % (1.7-9.3); MPV 10.7 FL (7.4-10.4); NEUT% 87.9 % (42.2-75.2); PLT 222 X1000 (130-400); RBC 4.42 XMIL (4.7-6.1); RDW 14.5 % (11.5-14.5); WBC 7.96 X1000 (4.8-10.8)
--- NOTE | 2018-12-07 08:51 | INFECTIOUS DISEASE PROGRESS NO ---
DATE: 12/07/2018 PRESENT ILLNESS: The patient has multifocal pulmonary infiltrates with pleural effusions. This could be due to a pneumonia with a pleural effusion, but I think also it could be due to metastatic pancreatic cancer, which unfortunately the patient has. The patient also has oral candidiasis. MEDICATIONS: This is day 4 of treatment with cefepime, Zyvox, and Levaquin and day 2 of treatment with nystatin for the patient's oral candidiasis. PHYSICAL EXAMINATION: Vital Signs: Temperature is 98 degrees, pulse 57, respirations 18, blood pressure 110/70. General: This is an ill-appearing elderly male. He is in no acute distress. Head/Eyes/Ears/Nose/Throat: He had has a further clearing of the white patches in his mouth. He has decreased hearing. He can see near objects. Neck: There is no pain with movement of the neck. Lungs: Clear to auscultation. Cardiovascular: The patient's heart rate is irregular. Abdomen: Soft and not tender. Neurologic: Patient is awake. He can move his extremities. As mentioned above, he has got decreased hearing. Integument: No rash noted. LABORATORY AND X-RAY: There is no x-ray for today, and there is no CBC for today. Blood gases show a pH of 7.47, a PO2 of 86, and a pCO2 of 54. Creatinine is 0.8, GFR is greater than 60. ASSESSMENT AND PLAN: Patient has bilateral pulmonary infiltrates with effusions. This could be an infectious process or it could be due to metastatic pancreatic cancer. I am going to continue the patient's antibiotics, and procalcitonin has been ordered, and hopefully we will be able to differentiate whether the pulmonary findings are from infection or cancer. Also, a paracentesis would be useful to send the fluid for cytology studies, as well as cultures. For now, I am going to continue the patient's antimicrobial agents. COMORBIDITIES: He is elderly. Unfortunately, he has pancreatic cancer. The patient also is a diabetic. cc: Jose Simmons MD
--- NOTE | 2018-12-07 13:16 | PROGRESS NOTE ---
DATE: 12/07/2018 SUBJECTIVE: This morning Mr. Cespedes refers to be doing fairly okay, still needing Venturi mask for adequate oxygenation. There were multiple family members at the bedside at the time of the encounter including the . OBJECTIVE: Vital signs: Blood pressure 112/68, pulse 84, respirations 20, and temperature 97.4 degrees. The patient is saturating about 93%. General: Mr. Cespedes is an 83-year-old gentleman. He is in bed. He is not in any distress. HEENT: Mucosa is pink and moist. Anicteric. Acyanotic. Neck: Supple. There was no JVD. Chest: Air entry is still bilaterally reduced. There are a few crackles in the posterior lung field with dullness to percussion. No rhonchi. Cardiovascular: Regular rate and rhythm. There is occasional extrasystolic beats. There is also an old sternotomy scar on the anterior chest wall. Abdomen: Soft, nontender. Bowel sounds present. Extremities: No pedal edema. Distal pulses are present. CITY JAILER: Patient is awake, alert, and oriented. There is no focal neurological deficit. The patient's I's and O's, urine output was about 900 overnight. The patient is currently negative balance of 810. LABORATORY DATA: WBC 7.96, hemoglobin is 14.3, and platelet count of 222,000. ABG shows a pCO2 of 54. Rest of parameters are normal. Chemistry is also reviewed. It is completely unremarkable. KUB yesterday did show small bilateral pleural effusions, right greater than the left. ASSESSMENT: 1. Acute hypoxemic respiratory failure on presentation. We think this is a combination of pulmonary edema, pleural effusions, and underlying pneumonia. The patient continues to be needing Venturi mask and nasal cannular for adequate oxygenation. 2. Multifocal pneumonia. Patient is currently on triple antibiotic coverage. Infectious Disease is on board. 3. Pulmonary edema with pleural effusions. The patient is pending a diagnostic thoracentesis to give us some answers as to why the fluid. Obviously, the patient could have a parapneumonic effusion or could be metastatic malignant effusion, or it could be cardiac. 4. History of pancreatic adenocarcinoma. Patient follows up with Dr. Blair. Patient has not started any adjuvant therapy yet because of previous admissions for pneumonias as well. In general, Mr. Cespedes seems to be doing fairly okay. Still needing oxygen supplement and has been evaluated by Dr. Thompson yesterday. I think it is still reasonable to do a diagnostic thoracentesis to give us a better understanding of the etiology of this effusion since this is about the 2nd or the 3rd time being treated for pneumonias. cc: Efren Tipton MD MTDD
--- NOTE | 2018-12-07 14:33 | Diag Imaging Result Doc PS360 ---
EXAM: CHEST-2 VIEWS HISTORY: POST U/S THORACENTESIS TECHNIQUE: Inspiratory and expiratory chest, two views COMPARISON: 12/06/2018 FINDINGS: Interval decrease in the size of the right pleural effusion. No pneumothorax. There are infiltrates throughout both lungs which remain. No cardiomegaly. IMPRESSION: No postprocedural pneumothorax. Follow-up films will be obtained in four hours. Electronically signed by Jericho Chapman 12/07/2018 2:31 PM
--- NOTE | 2018-12-07 14:56 | Diag Imaging Result Doc PS360 ---
EXAM: US THORACENTESIS W/IMAGE GUIDE HISTORY: right pleural effusion TECHNIQUE: Ultrasound-guided thoracentesis COMPARISON: None. FINDINGS: Prior to the procedure I discussed the risk and benefits with the patient. Primary risks include bleeding, infection, and pneumothorax. Questions were answered. Consent was given. The permit was signed. Ultrasound was used to localize the largest fluid collection in the right chest. This area was cleaned and draped in the normal fashion. Lidocaine was used as a local anesthetic. Needle and catheter were advanced into the fluid collection on the first attempt without difficulty. The needle was withdrawn. The catheter was hooked to hand suction. Approximately 900 cc of fluid were withdrawn without difficulty. The catheter was then withdrawn. No immediate postprocedural complications. IMPRESSION: Ultrasound-guided thoracentesis with no immediate complication. Electronically signed by Jericho Chapman 12/07/2018 2:54 PM
[2018-12-07 17:01] LABS: PH BODY FLUID 8; SPECIMEN PLEURAL FLUID
[2018-12-07 17:09] LABS: BODY FLUID SOURCE PLEURAL FLUID; WBC BF 76 /cumm
[2018-12-07 17:14] LABS: AMYLASE BODY FLUID 6 U/L; MONOS 53 %; POLYS 47 %; TOTAL PROT BODY FLUID 2.9 g/dL
[2018-12-07 17:15] LABS: GLUCOSE BODY FLUID 214 mg/dL; LDH BODY FLUID 86 U/L
--- NOTE | 2018-12-07 18:41 | Diag Imaging Result Doc PS360 ---
EXAM: CHEST-2 VIEWS - 12/07/2018 HISTORY: post thoracentesis TECHNIQUE: Inspiratory/expiratory chest two views COMPARISON: Prior exam of 12/07/2018 FINDINGS: There is no pneumothorax identified. There are no significant interval changes identified compared the prior exam. There are artifacts from skin fold noted on the left. IMPRESSION: No evidence of pneumothorax. Electronically signed by Bradley Jane 12/07/2018 6:39 PM
--- NOTE | 2018-12-07 22:58 | PULMONOLOGY PROGRESS NOTE ---
DATE: 12/07/2018 SUBJECTIVE: The patient is awake, alert, and conversant. He reports he feels better after thoracentesis. He did get out of bed today. OBJECTIVE: Vital Signs: The patient has been afebrile for the last 24 hours. Blood pressure 119/50, heart rate 95, respiratory rate 18, oxygen saturation 95% on 50% Venturi mask. HEENT: Pupils are equal and reactive. Oropharynx is clear. Neck: Supple. Chest: Reveals diminished breath sounds, left base, with bibasilar crackles. Cardiac exam: S1, S2. Abdomen: Soft. Extremities: Without edema. LABORATORIES: Immunoglobulin level is low at 599. White blood count 7.96, hemoglobin 14.1, platelet count 222,000. Pleural fluid is borderline exudative with a total protein level of 2.9, pH 8.0, white blood count 76, LDH 86, and amylase of 6. IMAGING STUDIES: Chest x-ray reveals marginal improvement in the right base with bibasilar infiltrates re-demonstrated. IMPRESSION: An 83-year-old with: 1. Emphysema/chronic obstructive pulmonary disease. 2. Acute hypoxemic respiratory failure. 3. Small bilateral pleural effusions, status post thoracentesis, right hemithorax, with borderline exudative effusion. 4. Bibasilar infiltrates consistent with pneumonia. 5. Pancreatic cancer. 6. Greater than 20% decrease in body weight over the last few months. 7. Declining performance status. 8. Immunoglobulin deficiency. RECOMMENDATIONS: 1. Continue bronchial hygiene. 2. Transition Solu-Medrol to prednisone. 3. Continue current antibiotic regimen. 4. Immunoglobulin replacement. 5. Encourage p.o. intake. 6. Overall prognosis is poor. cc: Hay Thompson MD
[2018-12-08] MEDS: NORCO-10 PO PRN ×5 (01:39→22:17)
[2018-12-08] MEDS: DUONEB (A & A) INH SCH ×5 (03:45→19:30)
[2018-12-08 05:09] LABS: ALLEN TEST YES; BE 13.7 mmoll (-3.0-3.0); BLOOD TYPE ARTERIAL; HCO3-(ACT) 35.6 mmoll (20.0-26.0); O2(CT) 14.9 mL/dL (15.0-23.0); O2HB 97.5 % (95.0-99.0); PCO2(98.6) 38 mmHg (35-45); PO2(98.6) 202 mmHg (60-100); SAMPLE BLOOD; SAO2 100.1 % (95.0-100.0); THB 10.5 g/dL (11.5-17.4)
[2018-12-08 05:16] LABS: MODALITY VENTIMASK; pH(98.6) 7.59 (7.35-7.45)
[2018-12-08] MEDS: CARDIZEM PO SCH ×3 (05:55→21:15)
[2018-12-08] MEDS: LASIX IV SCH (05:55)
[2018-12-08] MEDS: PRILOSEC PO SCH ×2 (05:55→06:31)
[2018-12-08 06:01] LABS: AGAP 8; ALB/GLOB RATIO 1.3; ALBUMIN 3.3 g/dL (3.5-5.0); ALKALINE PHOSPHATASE 86 U/L (32-122); BUN 43 mg/dL (8-22); CALCIUM 8.8 mg/dL (8.8-10.2); CHLORIDE 90 mmol/L (98-107); COSMO 288; CREATININE 0.9 mg/dL (0.7-1.2); ESTIMATED GFR > 60; GLUCOSE 159 mg/dL (70-104); GOT 47 U/L (10-34); GPT 79 U/L (10-44); MAGNESIUM 2.1 mg/dL (1.5-2.7); PHOSPHORUS 2.8 mg/dL (2.7-4.5); POTASSIUM 3.6 mmol/L (3.5-5.1); SODIUM 137 mmol/L (136-145); TCO2 39 mmol/L (25-35); TOTAL PROTEIN 5.8 g/dL (6.3-8.3)
[2018-12-08] MEDS: HUMULIN R SUBQ SCH ×4 (06:31→22:18)
[2018-12-08] MEDS ORDERED: NS 250 ML IV SCH (07:00)
[2018-12-08] MEDS ORDERED: GAMUNEX-C 10% IV ONE (07:00)
[2018-12-08] MEDS: MUCOMYST 20% INH SCH ×2 (07:30→19:30)
[2018-12-08] MEDS: ADVAIR 250/50 DISKUS INH SCH ×2 (07:30→19:30)
[2018-12-08] MEDS: LEVAQUIN PO SCH (08:37)
[2018-12-08] MEDS: MYCOSTATIN SUSP PO SCH ×4 (08:37→22:18)
[2018-12-08] MEDS: ZYVOX PO SCH ×2 (08:37→21:15)
[2018-12-08] MEDS: PREDNISONE PO SCH (08:37)
[2018-12-08] MEDS: MAXIPIME 2 GM in NS 100 ML IV SCH ×2 (09:27→21:15)
[2018-12-08] MEDS: ZOFRAN IV PRN (10:27)
--- NOTE | 2018-12-08 10:48 | Diag Imaging Result Doc PS360 ---
EXAM: CHEST-PORTABLE HISTORY: sob TECHNIQUE: Portable chest single view COMPARISON: 12/03/2018 FINDINGS: The patient is rotated to the left. There are small pleural effusions, left greater than right. These are similar in size to the films from yesterday afternoon. The heart is not enlarged. Increased interstitial markings throughout the lungs similar to the prior study. Irregular density in the upper left lung is unchanged. IMPRESSION: Stable chest Electronically signed by Jericho Chapman 12/08/2018 10:46 AM
--- NOTE | 2018-12-08 11:26 | INFECTIOUS DISEASE PROGRESS NO ---
DATE: 12/08/2018 PRESENT ILLNESS: The patient has multiple pulmonary infiltrates and also pleural effusions. The one on the right had a thoracentesis performed on it, and most of the fluid is gone. These pulmonary findings could be due to a pneumonia, or unfortunately could be due to metastatic pancreatic cancer, which unfortunately the patient has. Also, the patient has oral candidiasis, which is looking much better since he started Mycostatin swish and swallow, and most recently it was found that the patient's IgG level was 599. MEDICATIONS: This is day 5 of treatment with cefepime, Zyvox, and Levaquin, and day 3 of treatment with nystatin for the patient's oral candidiasis. PHYSICAL EXAMINATION: Vital Signs: Temperature is 98.2 degrees, pulse 82, respirations 16, blood pressure 105/57. General: This is an ill-appearing, elderly male. He is in no acute distress. HEENT: He has decreased hearing, but his vision is okay. He does not have any more white patches in his mouth since starting the Mycostatin swish and swallow. Neck: The patient does not have any pain with movement of his neck. Lungs: Clear to auscultation. Previously, there were markedly diminished breath sounds on the right side. Cardiovascular: The patient's heart rate is irregular. Abdomen: Soft and nontender. Neurologic: The patient is alert. He is moving his extremities. He is sitting up in bed. He does have decreased hearing, however. Integument: No rash noted. IMAGING AND LABORATORY DATA: Chest x-ray shows decrease in the patient's right pleural effusion because he had a thoracentesis yesterday. CBC shows a white count of 7590. The patient's blood gases show a pH of 7.59, PO2 of 202, and a pCO2 of 38. The pleural fluid white blood cell count was 76. The patient's IgG level was 599. Culture from the patient's pleural fluid is pending. Sputum grew normal laci. ASSESSMENT AND PLAN: The patient has pulmonary infiltrates and some small pleural effusions. I am going to continue his current antibiotics. The patient's procalcitonin level is pending. As regarding the patient's decrease in IgG, Dr. Thompson has ordered intravenous immunoglobulin, which I certainly agree with. COMORBIDITIES: Unfortunately, he has metastatic pancreatic cancer. The patient also has diabetes mellitus. cc: Jose Simmons MD
--- NOTE | 2018-12-08 12:29 | PROGRESS NOTE ---
DATE: 12/08/2018 SUBJECTIVE: This morning, Mr. Cespedes refers to be feeling a lot stronger and his breathing has improved. He is status post right thoracentesis yesterday, 900 mL was removed. The fluid analysis has mixed result, but it mainly showed mild exudation. OBJECTIVE: Current vitals: Blood pressure is 98/61, pulse is 73, respiration is 18, temperature 97.8 degrees. Patient was saturating about 97% on nasal cannula. General: Mr. Cespedes is an 83-year-old gentleman. He is in bed, no distress. HEENT: Mucosa is pink and moist. Anicteric. Acyanotic. Neck: Neck is supple. Chest: Air entry is bilaterally reduced. There are a few crackles in the posterior lung field. Cardiovascular: Regular rate and rhythm. No murmurs, no rubs, no gallops. There is an old sternotomy scar on the anterior chest wall. Abdomen: Soft, nontender. Bowel sounds are present. There is no hepatosplenomegaly. Extremities: No pedal edema. Central nervous system: Patient is awake, alert, and follows basic commands. LABORATORY DATA: ABG this morning shows pH of 7.56, pCO2 of 38, rest of the parameters are unremarkable. The chemistry also shows a bicarb of 39. The fluid analysis have also been reviewed. A chest x-ray this morning shows stable, there is an irregular density in the left upper lung which is unchanged. ASSESSMENT: 1. Acute hypoxemic respiratory failure on presentation. The patient continues to be on oxygen therapy. I think he is going to be needing oxygen for discharge. 2. Multifocal pneumonia. Patient is on antibiotic coverage. Infectious Disease is on board. 3. Pulmonary edema with pleural effusion. The patient is status post right thoracentesis 800 mL was removed. It appears to be exudative in nature. The patient is on antibiotics. We are going to be pending the cytology report. 4. History of pancreatic adenocarcinoma. Patient follows up with Dr. Blair. cc: Efren Tipton MD
[2018-12-08] MEDS: LASIX PO SCH (21:15)
[2018-12-09] MEDS: DUONEB (A & A) INH SCH ×7 (00:47→23:30)
--- NOTE | 2018-12-09 02:36 | PULMONOLOGY PROGRESS NOTE ---
DATE: 12/08/2018 SUBJECTIVE: The patient is awake, alert, and conversant. He reports he is eating better. According to the nursing notes, he has refused several meals and eating between 25% and 50% of his meals. He has no increased work of breathing. OBJECTIVE: Vital Signs: The patient has been afebrile for the last 24 hours. Blood pressure 100/63, heart rate 92, respiratory rate 14, oxygen saturation 94% on nasal cannula. HEENT: Pupils are equal and reactive. Oropharynx appears clear. Neck: Supple. Chest: Reveals prolonged expiratory phase with decreased breath sounds both lung bases, with occasional rhonchi. Cardiac: S1, S2. Abdomen: Soft. Extremities: Without edema. LABORATORIES: Chest x-ray reveals small bilateral effusions with density in the left upper lobe. White blood count 7.96, hemoglobin 14.1, platelet count 222,000. Arterial blood gas reveals a pH 7.59, pCO2 of 38, PO2 of 202. Sodium 137, potassium 3.6, chloride 90, bicarbonate 39, BUN 43, creatinine 0.9, glucose 159. IMPRESSION: An 83-year-old with 1. Severe chronic obstructive pulmonary disease/emphysema. 2. Acute hypoxemic respiratory failure. 3. Small bilateral effusions status post thoracentesis. Pleural fluid was borderline exudative. Cytology is pending. Cultures are negative. 4. Bilateral infiltrates consistent with pneumonia. 5. Immunoglobulin deficiency. 6. Pancreatic cancer. 7. Significant weight loss, up to 20% of total body weight over the last few months. 8. Declining performance status. RECOMMENDATION: 1. Continue bronchial hygiene. 2. Continue antibiotics per Infectious Disease. 3. Continue low-dose prednisone. 4. Encourage p.o. intake. We will check pre-albumin level. 5. Overall prognosis is poor. His end of life discussions have been held and he will be allowed to have a natural if he has a terminal cardiac or pulmonary event. cc: Hay Thompson MD
[2018-12-09 03:47] LABS: ALLEN TEST YES; BE 15.3 mmoll (-3.0-3.0); BLOOD TYPE ARTERIAL; HCO3-(ACT) 36.7 mmoll (20.0-26.0); METHB 0.8 % (0.0-1.5); O2(CT) 18.5 mL/dL (15.0-23.0); O2HB 91.6 % (95.0-99.0); PO2(98.6) 62 mmHg (60-100); SAMPLE BLOOD; SAO2 94.7 % (95.0-100.0); THB 14.4 g/dL (11.5-17.4); pH(98.6) 7.48 (7.35-7.45)
[2018-12-09 03:50] LABS: MODALITY CANNULA
[2018-12-09 03:51] LABS: PCO2(98.6) 56 mmHg (35-45)
[2018-12-09] MEDS: NORCO-10 PO PRN ×4 (04:14→20:24)
[2018-12-09] MEDS: CARDIZEM PO SCH ×3 (04:16→20:24)
[2018-12-09] MEDS: HUMULIN R SUBQ SCH ×3 (06:15→16:06)
[2018-12-09] MEDS: PRILOSEC PO SCH (06:15)
[2018-12-09] MEDS: ADVAIR 250/50 DISKUS INH SCH ×2 (07:32→19:38)
[2018-12-09] MEDS: MUCOMYST 20% INH SCH ×2 (07:32→19:30)
[2018-12-09] MEDS: PREDNISONE PO SCH (08:22)
[2018-12-09] MEDS: MYCOSTATIN SUSP PO SCH ×4 (08:22→20:30)
[2018-12-09] MEDS: MAXIPIME 2 GM in NS 100 ML IV SCH ×2 (08:22→20:25)
[2018-12-09] MEDS: LEVAQUIN PO SCH (08:22)
[2018-12-09] MEDS: LASIX PO SCH ×2 (08:22→20:24)
[2018-12-09] MEDS: ZYVOX PO SCH ×2 (08:22→20:25)
[2018-12-09] MEDS: ZOFRAN IV PRN (08:39)
--- NOTE | 2018-12-09 20:34 | PROGRESS NOTE ---
DATE: 12/09/2018 Today Mr. Cespedes refers to be doing a lot better breathing well. OBJECTIVE: Vitals: Blood pressure is 96/61, pulse of 91, respiration is 17, temperature is 97.8 degrees. General: Mr. Cespedes 83-year-old gentleman he is in bed no seeming distress. Mucosa is pink and moist. Anicteric. Acyanotic. Neck: Supple. Chest: Air entry is bilaterally reduced, there are still a few crackles in the posterior lung freeman. Cardiovascular: Regular rate and rhythm. No murmurs, no rubs. There is an old sternotomy scar on the anterior chest wall. Abdomen: Soft, nontender. Extremities: No pedal edema. MANAGER USER INTERFACE: Patient is awake, alert and oriented. LABORATORY DATA: None for today. The pH, pCO2 was about 56, PO2 was normal. Procalcitonin was actually less than 0.10. ASSESSMENT: 1. Acute hypoxemic respiratory failure, patient continues to be needing oxygen therapy but significantly improving. 2. Multifocal pneumonia. Patient is on intravenous antibiotics. 3. Pulmonary edema with pleural effusion, patient is status post right thoracentesis, 800 mL had been removed. Analysis appears to be exudative in nature, was still pending cytology. 4. History of pancreatic adenocarcinoma. Patient follows up with Dr. Blair. 5. Congestive heart failure with preserved ejection fraction noted. cc: Efren Tipton MD [facility]
--- NOTE | 2018-12-09 20:58 | PULMONOLOGY PROGRESS NOTE ---
DATE: 12/09/2018 SUBJECTIVE: The patient's p.o. intake continues to be inadequate. He reports he has no appetite and cannot eat. OBJECTIVE: Vital Signs: The patient has been afebrile for the last 24 hours. Blood pressure 95/64, heart rate 85, respiratory rate 17, oxygen saturation 94% on 3 L per nasal cannula. HEENT: Pupils are equal and reactive. Oropharynx is clear. Neck: Supple. Chest: Reveals crackles in both lung bases. Cardiac: S1-S2. Abdomen: Scaphoid and soft. Extremities: Without edema. LABORATORY DATA: Arterial blood gas on 4 L per nasal cannula, pH 7.48, pCO2 of 56, PO2 of 62 with a lactate of 2.5. No CBC or chemistry. No new microbiology. IMPRESSION: An 83-year-old with: 1. Severe chronic obstructive pulmonary disease/emphysema. 2. Acute hypoxemic respiratory failure. 3. Small bilateral pleural effusions. Pleural fluid from the right hemithorax was borderline exudative. Cultures were negative. Cytology is pending. 4. Pancreatic cancer. 5. Bilateral pneumonia. 6. Immunoglobulin deficiency, status post replacement. 7. Abnormal weight loss related to malignancy. 8. Declining performance status. DISCUSSION: An 83-year-old with problems outlined above. His oxygen requirements have diminished. He continues to have inadequate p.o. intake/anorexia. RECOMMENDATION: 1. Continue bronchial hygiene. 2. Followup chest x-ray tomorrow. 3. Continue low-dose steroids. 4. Continue antibiotics per Infectious Disease. 5. Overall prognosis is poor. The patient appears to be approaching maximum hospital benefit. cc: Hay Thompson MD
[2018-12-10] MEDS: NORCO-10 PO PRN ×3 (00:47→08:48)
[2018-12-10] MEDS: HUMULIN R SUBQ SCH ×5 (00:48→20:26)
[2018-12-10] MEDS: DUONEB (A & A) INH SCH ×6 (03:16→23:13)
[2018-12-10] MEDS: CARDIZEM PO SCH ×2 (04:06→12:45)
[2018-12-10] MEDS: PRILOSEC PO SCH (06:31)
[2018-12-10] MEDS: ADVAIR 250/50 DISKUS INH SCH ×2 (07:22→19:31)
[2018-12-10] MEDS: MUCOMYST 20% INH SCH ×2 (07:23→19:31)
--- NOTE | 2018-12-10 07:39 | Diag Imaging Result Doc PS360 ---
CHEST-PORTABLE - 12/10/2018 INDICATION: abnormal exam COMPARISON: 12/08/2018 FINDINGS: Stable sternotomy wires. Stable severe COPD. There has been significant improvement in aeration of the upper lobes bilaterally. Decrease in small bilateral pleural effusions. Grossly stable persistent infiltrate throughout the lung bases. Heart size remains normal. IMPRESSION: Improvement from prior. Electronically signed by Ady Webber 12/10/2018 7:37 AM
[2018-12-10] MEDS: LEVAQUIN PO SCH (08:50)
[2018-12-10] MEDS: MYCOSTATIN SUSP PO SCH ×5 (08:50→20:26)
[2018-12-10] MEDS: PREDNISONE PO SCH (08:50)
[2018-12-10] MEDS: ZYVOX PO SCH ×2 (08:50→20:05)
[2018-12-10] MEDS: MAXIPIME 2 GM in NS 100 ML IV SCH ×2 (08:50→20:05)
[2018-12-10] MEDS: LASIX PO SCH ×2 (08:51→20:04)
[2018-12-10] MEDS ORDERED: PERCOCET-10 PO PRN (13:47)
--- NOTE | 2018-12-10 15:17 | INFECTIOUS DISEASE PROGRESS NO ---
DATE: 12/10/2018 PRESENT ILLNESS: The patient has bilateral infiltrates and pleural effusions. This may be due to pneumonia. However, the patient's procalcitonin is extremely low, namely less than 0.1 which would make a pneumonia very unlikely, and unfortunately the infiltrates and/or pleural effusions may be due to the patient's metastatic pancreatic cancer. The patient has a low IgG level. MEDICATIONS: This is the sixth day of treatment with the patient's antibiotics, namely cefepime, Levaquin and Zyvox. The patient also has oral candidiasis for which she receives nystatin. The patient's antibiotics for his possible pneumonia include cefepime, Levaquin and Zyvox. PHYSICAL EXAMINATION: Vital Signs: Temperature is 97.8 degrees, pulse 90, respirations 18, blood pressure 125/60. General: This is an ill-appearing elderly male. He is in no acute distress. Head/eyes/ears/nose/throat: He can hear my spoken words and see near objects. He does not have any white coating on his tongue. Neck: No pain with movement of his neck. Lungs: Clear to auscultation. Cardiovascular: The patient's heart rate is regular, but there are frequent premature beats. Abdomen: Soft and nontender. Neurologic: Patient is alert. He can move his extremities. He does have decreased hearing. Integument: No rash. Head, eyes, ears, nose, and throat: He has decreased hearing. He can see near objects. He does not have any white patches on his tongue currently. LAB AND X-RAY: The patient's chest x-ray shows improvement in the left and right upper lobe infiltrates and stable bibasilar infiltrates. There is decrease in the patient's bilateral pleural effusions. The patient's CBC shows a white count of 7960, hemoglobin 14.1, and platelet count 222,000. Blood gases show a pH of 7.48, a PO2 of 62, and a pCO2 of 56, creatinine 0.9. GFR is greater than 60. ALT is 79. IgG is 599. Procalcitonin is less than 0.1. Pleural fluid culture is negative. Chest x-ray is as mentioned above, shows improvement in the left and right upper lobe. The patient's bibasilar infiltrates are stable. There is also a decrease in the bilateral pleural effusions. ASSESSMENT AND PLAN: There is a very high likelihood that the patient's pulmonary infiltrates and effusions could be caused by his metastatic pancreatic cancer in view of the procalcitonin being less than 0.1. However, he has been on antibiotics and shows improvement, which would suggest there may be also a pneumonia with an associated pleural effusion; however the patient's improvement in the chest x-ray upper lobes infiltrates and improvement in the patient's pleural effusions suggest that possibly the patient has a superimposed pneumonia or he has completely pneumonia causing the effusions and infiltrates. My plan is to continue his antibiotics because the chest x-ray is improving. I agree with giving the patient also the IVIG, but I think it is not low enough that he should get regular doses of IVIG. I ordered to remove the patient's Ventura catheter. COMORBIDITIES: The patient has metastatic pancreatic cancer. He also is a diabetic. cc: Jose Simmons MD MTDD
[2018-12-10] MEDS: MORPHINE IV PRN ×3 (15:54→23:27)
--- NOTE | 2018-12-10 16:37 | PROGRESS NOTE ---
DATE: 12/10/2018 SUBJECTIVE: This morning Mr. Cespedes refers to be doing a lot better. He said his breathing has significantly improved denies any chest pain. Patient has also been participating with physical therapy. OBJECTIVE: His current vitals blood pressure is 107/64, pulse of 87, respiration is 16, temperature 97.5 degrees, patient is saturating about 92% on 5 L.General: Mr. Cespedes is an 89-year-old elderly gentleman he is in bed, he is not in any distress. Mucosa is pink and moist. Anicteric, acyanotic. Neck: Supple. Respiratory: Air entry still bilaterally reduced, sounds a whole lot better than day before. A few crackles in the posterior lung freeman. Cardiovascular: Regular rate and rhythm. No murmurs, no rubs, no gallops. There is an old sternotomy scar on the anterior chest wall. Abdomen: Soft, nontender. Bowel sounds present. Extremities: No pedal edema. 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 There is no focal neurological deficit. LABORATORY DATA: Glucose is 171. A chest x-ray this morning shows improvement. ASSESSMENT: 1. Acute hypoxemic respiratory failure on presentation, patient continues to be on oxygen therapy. Will continue to titrate this down. 2. Multifocal pneumonia. Patient is on antibiotics. Infectious Disease is on board. 3. Pulmonary edema with pleural effusions, patient is status post right thoracentesis 800 mL of fluid was removed, fluid analysis appears to be mild exudative in nature. We are still pending the cytology. 4. History of pancreatic adenocarcinoma. Patient follows up with Dr. Blair. 5. Congestive heart failure with preserved ejection fraction. Echocardiogram done on November 21 shows an ejection fraction of 60% with mild left ventricular hypertrophy. So I think in general Mr. Cespedes is doing a lot better. He did complain of some pain generally and he thinks the [place] is not helping. We will discontinue that and put him on Percocet. Will also discontinue his Ventura catheter, we have encourage Mr. Cespedes to participate more with physical therapy. I thing we getting near his discharge time. We are going to plan to get him discharged on Wednesday. cc: Efren Tipton MD [facility]
--- NOTE | 2018-12-10 19:21 | PULMONOLOGY PROGRESS NOTE ---
DATE: 12/10/2018 SUBJECTIVE: The patient is awake, alert, and conversant. He continues to have limited p.o. intake. He is without specific complaints. OBJECTIVE: Vital Signs: BP 107/64, heart rate 87, respiratory rate 16, oxygen saturation 92% on 5 L per nasal cannula. HEENT: Pupils are equal and reactive. Oropharynx appears clear. Neck: Is supple. Chest: Reveals bibasilar crackles. Cardiac: S1-S2. Abdomen: Soft. Extremities: Reveal trace edema. LABORATORIES: Chest x-ray reveals bibasilar infiltrates, right greater than left. IMPRESSION: An 83-year-old with 1. Severe chronic obstructive pulmonary disease/emphysema. 2. Bilateral pneumonia with improvement. 3. Acute hypoxemic respiratory failure. 4. Pancreatic cancer. 5. Immunoglobulin deficiency status post replacement. 6. Progressive weight loss. 7. Declining performance status. RECOMMENDATIONS: 1. Continue bronchial hygiene. 2. Continue low-dose steroids. 3. Continue antibiotics. 4. Continue oxygen. 5. Anticipate discharge on Wednesday. He is reaching his maximum hospital benefit. His prognosis remains poor. cc: Hay Thompson MD
[2018-12-11] MEDS: MORPHINE IV PRN ×7 (03:10→19:33)
[2018-12-11] MEDS: HUMULIN R SUBQ SCH ×4 (06:14→21:34)
[2018-12-11] MEDS: PRILOSEC PO SCH (06:23)
[2018-12-11] MEDS: MUCOMYST 20% INH SCH ×2 (07:49→19:37)
[2018-12-11] MEDS: DUONEB (A & A) INH SCH ×6 (07:49→23:26)
[2018-12-11] MEDS: PREDNISONE PO SCH (08:23)
[2018-12-11] MEDS: MYCOSTATIN SUSP PO SCH ×2 (08:23→13:09)
[2018-12-11] MEDS: LASIX PO SCH ×3 (08:23→20:00)
[2018-12-11] MEDS: ZYVOX PO SCH ×3 (08:24→20:01)
[2018-12-11] MEDS: LEVAQUIN PO SCH (08:24)
[2018-12-11] MEDS: MAXIPIME 2 GM in NS 100 ML IV SCH ×3 (09:27→20:01)
[2018-12-11] MEDS: CARDIZEM CD PO SCH (09:29)
[2018-12-11] MEDS ORDERED: DURAGESIC 25 MICROGM/HR PATCH TD SCH (14:15)
--- NOTE | 2018-12-11 14:37 | PULMONOLOGY PROGRESS NOTE ---
DATE: 12/11/2018 SUBJECTIVE: The patient is awake and alert. He is without specific complaints. He ate 50% of one meal yesterday and refused his breakfast this morning. OBJECTIVE: Vital Signs: The patient has been afebrile for the last 24 hours. Blood pressure 95/59, heart rate 96, respiratory rate 17, oxygen saturation 96% on 5 L per nasal cannula. HEENT: Pupils are equal and reactive. Oropharynx is clear. Neck: Supple. Chest: Reveals crackles in both lung bases. Cardiac: S1, S2. Abdomen: Soft, with diminished bowel sounds. Extremities: Without edema. IMPRESSION: An 83-year-old with: 1. Severe chronic obstructive pulmonary disease/emphysema. 2. Bilateral pneumonia with continued improvement. 3. Acute hypoxemic respiratory failure. 4. Pancreatic cancer. 5. Immunoglobulin deficiency status post replacement. 6. Significant anorexia with progressive weight loss. 7. Declining performance status. RECOMMENDATIONS: 1. Continue bronchial hygiene. 2. Continue low-dose steroids. 3. Complete antibiotic regimen. 4. Continue oxygen. 5. Anticipate discharge soon. The patient's lack of appetite, abdominal discomfort, and progressive weight loss is an extremely poor prognosis. I doubt he will tolerate additional chemotherapy. cc: Hay Thompson MD
--- NOTE | 2018-12-11 15:13 | INFECTIOUS DISEASE PROGRESS NO ---
DATE: 12/11/2018 PRESENT ILLNESS: The patient has bilateral infiltrates and pleural effusions. On this latest chest x-ray the bilateral infiltrates have not improved in both bases. There is better aeration in the upper lung freeman. The patient also has oral candidiasis. His IgG level is 599 and I think that is only minimally diminished and given that and also that the patient has pancreatic cancer, I do not think that his low immunoglobulin level clinically is not causing any of the patient's current problems. MEDICATIONS: This is the 7th day of treatment with cefepime, Levaquin and Zyvox. The patient has been getting nystatin for oral candidiasis and the patient tells me that he hates to take the nystatin because it is painful in his mouth. As far as the patient's low IgG level, I do not think clinically it is causing any problem and the patient has pancreatic cancer which has a very poor outlook, also. Therefore, I do not think that the patient should receive intravenous immunoglobulin. Regarding the patient's antibiotics, I think tomorrow they can be discontinued and I do not think the patient will need to be sent home on any of the antibiotics, namely because the bibasilar infiltrates have not improved with antibiotics and as mentioned above the procalcitonin level is less than 0.1. PHYSICAL EXAMINATION: Vital Signs: Temperature is 97.5 degrees, pulse 96, respirations 17, blood pressure 95/59. General: This is an ill-appearing elderly male. He is in no acute distress, but he does seem depressed over not feeling good. Head, Eyes, Ears, Nose and Throat: He can hear my spoken words when I am near him. He can see near objects. He does not have any more white coating on his tongue. Neck: He does not have any pain when he moves his head. Lungs: Clear to auscultation. Cardiovascular: Heart rate is regular with frequent premature beats. Abdomen: Soft and nontender. Neurologic: Patient is alert. He can move his extremities. Integument: No rash noted. LAB AND X-RAY: The chest x-ray shows better upper lobe aeration, but the basilar infiltrates have not improved. His pleural fluid culture was negative. The cytology has not yet returned. He does not have a recent CBC or BMP. ASSESSMENT AND PLAN: At this time, I do not think the patient has an active pulmonary infection. I think tomorrow his antibiotics can be discontinued and I do not think he will need any more antibiotics when he goes home. Also, the patient as mentioned above, does not like to take the nystatin and so I feel that the patient should be discontinued tomorrow, also. I am going to sign off the patient's case and go ahead and write for orders to stop his antibiotics and the nystatin swish and swallow tomorrow. Also, I do not think the patient should receive IVIG. COMORBIDITIES: The patient's comorbidity, unfortunately he has metastatic pancreatic cancer. He also is a diabetic. As mentioned, above I am signing off the patient's case. I am available to see him on a p.r.n. basis. cc: Jose Simmons MD
--- NOTE | 2018-12-11 15:20 | PROGRESS NOTE ---
DATE: 12/11/2018 SUBJECTIVE: This morning refers to be doing fairly okay. Denies any complaints. OBJECTIVE: Vitals: Blood pressure is 95/59, pulse is 93, respirations 17, temperature 97.5 degrees. General: Mr. Cespedes is an 83-year-old male. He is in bed, does not seem to be in any cardiopulmonary distress. HEENT: Mucosa is pink and moist. Anicteric. Acyanotic. Neck: Supple. Chest: Air entry was bilaterally reduced. There are still a few crackles posteriorly, more so to the left posterior lung field. Cardiovascular: Regular rate and rhythm. Abdomen: Soft, no murmurs. Extremities: No pedal edema. Central nervous system: Patient is awake, alert. No focal deficit. There is an old sternotomy scar on the anterior chest wall. No new lab works for today. ASSESSMENT: 1. Acute hypoxemic respiratory failure, improving. Patient is currently just on minimum oxygen therapy. 2. Multifocal pneumonia. The patient has been on antibiotics. I have discussed with Infectious Disease. We think Mr. Cespedes has had enough IV antibiotics, and we will discontinue these hopefully tomorrow before he goes home. 3. Pulmonary edema with pleural effusions. The patient is status post right thoracentesis. Fluid analysis appears to be mildly exudative, still pending cytology. We think this is probably related to his underlying malignancy. 4. History of pancreatic adenocarcinoma. The patient follows up with Dr. Blair. 5. Congestive heart failure with preserved ejection fraction associated with mild left ventricular hypertrophy. 6. Generalized weakness and poor performance status related to the underlying malignancy. PLAN: In general, I think Mr. Cespedes has achieved a maximum benefit from hospital course. His primary care doctor, Dr. Bah, came to visit him yesterday and reiterated the need for hospice services. This morning both patient and the family members are all requesting for hospice consult so we will do that today and hopefully we can get Mr. Cespedes home tomorrow with hospice. cc: Efren Tipton MD [facility]
[2018-12-11] MEDS ORDERED: CALMOSEPTINE OINTMENT TOP PRN (16:33)
[2018-12-11 18:06] LABS: URINE SOURCE CATH
[2018-12-11 18:10] LABS: BILIRUBIN URINE NEGATIVE (NEGATIVE); BLOOD URINE LARGE (NEGATIVE); COLOR YELLOW; GLUCOSE URINE NEGATIVE (NEGATIVE); KETONE URINE 10 mg/dL (NEGATIVE); LEUKOCYTES URINE SMALL (NEGATIVE); NITRITE URINE NEGATIVE (NEGATIVE); PH URINE 6.5; PROTEIN URINE 50 mg/dL (NEGATIVE); SP GRAVITY URINE 1.022; TURBIDITY URINE CLEAR (CLEAR); UROBILINOGEN URINE NORMAL (NORMAL)
[2018-12-11 18:11] LABS: UR EPITHELIAL CELLS >10 /HPF (<10); URINE BACTERIA NEGATIVE /HPF; URINE RBC TNTC /HPF (<10)
[2018-12-11] MEDS: ADVAIR 250/50 DISKUS INH SCH ×2 (19:37→21:34)
[2018-12-12] MEDS: MORPHINE IV PRN ×8 (00:43→17:32)
[2018-12-12] MEDS: DUONEB (A & A) INH SCH ×4 (03:10→16:00)
[2018-12-12] MEDS: PRILOSEC PO SCH (06:38)
[2018-12-12] MEDS: HUMULIN R SUBQ SCH ×2 (06:38→10:51)
[2018-12-12] MEDS: ADVAIR 250/50 DISKUS INH SCH (08:19)
[2018-12-12] MEDS: MUCOMYST 20% INH SCH (08:20)
[2018-12-12] MEDS: CARDIZEM CD PO SCH (08:39)
[2018-12-12] MEDS: LASIX PO SCH (08:39)
[2018-12-12] MEDS: MAXIPIME 2 GM in NS 100 ML IV SCH (08:39)
[2018-12-12] MEDS: PREDNISONE PO SCH (08:39)
[2018-12-12] MEDS: ZYVOX PO SCH (08:39)
[2018-12-12] MEDS: LEVAQUIN PO SCH (08:39)
[2018-12-12] MEDS ORDERED: ATROPINE 1 % OPHTH SOLN SL PRN (14:07)
[2018-12-12] MEDS ORDERED: ATIVAN IV PRN (15:04)
--- NOTE | 2018-12-12 15:15 | PROGRESS NOTE ---
DATE: 12/12/2018 SUBJECTIVE: This morning Mr. Cespedes looks more feeble and weaker than yesterday. He was sleeping but was easily arousable. OBJECTIVE: Vitals: Blood pressure is 123/54, pulse of 97, respirations 20, temperature is 97.6 degrees. General: Mr. Cespedes is an 83-year-old gentleman he was in bed was not in any distress. Mucosa is pink and moist. Anicteric, acyanotic. Neck: Supple. Chest: Air entry was bilaterally reduced, there is crackles in both lung freeman. Cardiovascular: Regular rate and rhythm. No murmurs. Abdomen: Soft, minimally distended but nontender. Bowel sounds are present. Extremities: No pedal edema. ECOMMERCE MARKETING SPECIALIST: Patient was sleeping but was easily arousable will follow basic commands. Musculoskeletal: There is an old sternotomy scar on the anterior chest wall. LABORATORY DATA: None for today and no imaging studies either. ASSESSMENT: 1. Acute hypoxemic respiratory failure on presentation. This is improved however patient continues to be needing oxygen therapy. 2. Multifocal pneumonia. Patient was initially started on intravenous antibiotics. This has been discontinued because of his current medical status . 3. Pulmonary edema with pleural effusion, patient is status post right thoracentesis 900 mL of fluid was initially removed, fluid analysis was consistent with mild exudation. We are still pending the cytology report. We presume this could potentially be metastatic disease . 4. History of pancreatic cancer. 5. Congestive heart failure with preserved ejection fraction associated with mild left ventricular hypertrophy. 6. Generalized weakness and poor performance status related to the underlying malignancy. So today Mr. Cespedes was evaluated by hospice and I understand he does qualify for hospice. However the who will be the main person at home with him refers that she would not be able to see her at home in that condition. We will transition his care therefore to comfort care measures only. He is currently do not resuscitate level 1 and they do not want any further intervention. Mr. Cespedes will be transferred from the [facility] to the medical floor for HOIST WORKER today. If at any point the feels comfortable taking him home we will discharge him on hospice. cc: Efren Tipton MD Addendum: [facility] has evaluated patient today. Patient will be admitted to [facility] as GIP. MTDD
[2018-12-12 15:39] VITALS: BP 104/68
--- NOTE | 2018-12-13 15:46 | PROGRESS NOTE ---
DATE: 12/13/2018 SUBJECTIVE: The patient is resting in bed. Has family present in the room. OBJECTIVE: Vital Signs: Temperature 96.8 degrees, pulse 60, respiratory rate 14, blood pressure 105/73, oxygen saturation is 98%. HEENT: Atraumatic, normocephalic. Cardiovascular system: S1, S2. Respiratory system: Has evidence of good air entry bilaterally. Central nervous system: The patient seems to be obtunded. LABORATORY DATA: None. ASSESSMENT: 1. Acute respiratory failure, multifocal pneumonia, pulmonary edema with pleural effusion. 2. History of lung cancer. 3. Congestive heart failure. PLAN: The patient has been admitted under hospice service and he is currently receiving comfort measures only. He is DNR level 1 and did not want any further intervention. cc: Atif Puente MD
--- NOTE | 2018-12-14 22:39 | DISCHARGE SUMMARY ---
ADMISSION DATE: 12/02/2018 DISCHARGE DATE: 12/12/2018 DISPOSITION: Inpatient hospice. CONSULTATION DURING THIS ADMISSION: 1. Pulmonary Medicine was consulted. The patient was seen by Dr. Hardy and followed up by Dr. Thompson . 2. ID was consulted. The patient was seen by Dr. Simmons. INVASIVE PROCEDURE DONE DURING THIS ADMISSION: Ultrasound-guided thoracentesis was done by IR. DIAGNOSIS AT THE TIME OF TRANSFER TO HOSPICE: 1. Acute hypoxemic respiratory failure. 2. Multifocal pneumonia. 3. Pulmonary edema with pleural effusion, status post right thoracentesis. 4. History of pancreatic cancer. 5. Congestive heart failure with preserved ejection fraction with mild ventricular hypertrophy. 6. Generalized weakness and poor performance status secondary to underlying malignancy. PRESENTING COMPLAINT: Shortness of breath. HISTORY OF PRESENT COMPLAINT: Mr. Cespedes is an 83-year-old male who presented initially to [place] because of difficulty breathing. He was found to have oxygen saturation of 89% on 3 L. A chest x-ray did reveal infiltrates throughout both lungs. The patient was subsequently admitted to medical floor for further management. HOSPITAL COURSE: Mr. Cespedes was initially admitted to [place]. He was transferred to [facility] for higher level of care. He was initially admitted to ICU and transition to the [facility]. The patient was on BiPAP at some point, but was gradually titrated down to just nasal cannula. Unfortunately, during the hospital course, his respiratory status did not really improve despite 900 mL of fluid was tapped from the right lung. Subsequently, during the hospital course, the family members made a decision to transition his care to hospice. Mr. Cespedes was subsequently transferred to hospice care on 12/11/2018 and he was transferred from the [facility] to the medical floor. cc: Efren Tipton MD MTDJanie
--- NOTE | 2018-12-17 00:50 | DISCHARGE SUMMARY ---
ADMISSION DATE: 12/02/2018 DISCHARGE DATE: 12/12/2018 FINAL DIAGNOSES: 1. Acute hypoxemic respiratory failure. 2. Multifocal pneumonia. 3. Pulmonary edema with pleural effusion status post right thoracocentesis. 4. History of pancreatic cancer. 5. History of congestive heart failure with preserved ejection fraction with mild ventricular hypertrophy. 6. Generalized weakness with poor performance status secondary to underlying malignancy. HOSPITAL COURSE: Mr. Cespedes was initially admitted to [facility] [place], was later transferred to [facility] for higher level of care. Initially, he was admitted to the ICU and then transitioned to [facility]. The patient was BiPAP and was gradually titrated down to nasal cannula. His respiratory status did not improve during the course of the hospital stay. He had about 900 mL of pleural fluid taken off from the right pleural space. During the course of the hospital stay, family made a decision to transition him to hospice and the patient was subsequently transitioned to hospice on 12/11/2018, and he later on 12/12/2018. cc: Atif Puente MD
== END 2018-12-12 18:04 | disposition hospice, inpatient (51) | DRG 177 ==
LOC: P.ED 22:40 → SUATTDRO 12-02 02:52 → P.MEDSURG 12-02 02:52 → P.ICU 12-03 18:36 → 3S 12-04 21:02
PROVIDERS: ATTEND Internal Medicine
CPT/HCPCS: 32421; 32555; 70450; 71010; 71020; 71035; 71045; 71046; 71260; 80048; 80053; 81001; 82150; 82306; 82378; 82533; 82550; 82607; 82784; 82805; 82945; 82948; 83036; 83605; 83615; 83735; 83880; 83986; 84100; 84132; 84134; 84145; 84157; 84439; 84443; 84484; 85025; 85610; 85730; 86140; 87040; 87070; 87088; 87205; 88112; 88305; 89051; 93005; 93010; 94640; 94761; 94799; 96361; 96365; 96375; 97162; 97530; 99285; A9270; J0692; J1170; J1561; J1650; J1815; J1940; J1956; J2020; J2270; J2405; J2930; J3475; J7030; J7050; J7506; J7512; Q9967; XXXXX

== ENCOUNTER 2018-12-12 18:07 | Inpatient (IN) ==
[2018-12-12] MEDS ORDERED: TYLENOL PR PRN (18:27)
[2018-12-12] MEDS ORDERED: TYLENOL PO PRN (18:27)
[2018-12-12] MEDS ORDERED: ATIVAN PO PRN (18:28)
[2018-12-12] MEDS ORDERED: ATROPINE 1 % OPHTH SOLN SL PRN (18:31)
[2018-12-12] MEDS ORDERED: CALMOSEPTINE OINTMENT TOP PRN (18:34)
[2018-12-12] MEDS ORDERED: DULCOLAX PR PRN (18:35)
[2018-12-12] MEDS ORDERED: ZOFRAN IV PRN (18:35)
[2018-12-12] MEDS ORDERED: DUONEB (A & A) INH PRN (18:35)
[2018-12-12] MEDS ORDERED: PHENERGAN PR PRN (18:36)
[2018-12-12] MEDS ORDERED: PHENERGAN PO PRN (18:36)
[2018-12-12] MEDS: DILAUDID IV PRN (19:16)
[2018-12-12] MEDS: ATIVAN IV PRN (19:23)
[2018-12-13] MEDS: ATIVAN IV PRN ×2 (00:17→06:10)
[2018-12-13] MEDS: DILAUDID IV PRN ×5 (00:17→22:22)
[2018-12-13 00:28] VITALS: BP 105/73
[2018-12-14] MEDS: DILAUDID IV PRN (00:25)
== END 2018-12-14 00:36 | disposition expired | DRG 437 ==
LOC: 3S 18:07 → SUATTDRO 18:07 → 4N 12-13 15:41
PROVIDERS: ADMIT Internal Medicine; ATTEND Internal Medicine
CPT/HCPCS: 94761; A9270; J1170; J2060; J2405